=== PATIENT | female | born 1955 | race Caucasian/White ===

== ENCOUNTER 2018-07-05 11:13 | Emergency (ER) | payer OTHER, MEDICAID, SELFPAY ==
[2018-07-05 11:21] VITALS: BP 148/92; PULSE 90; RESP 14; TEMP 36.2; O2SAT 99
--- NOTE | 2018-07-05 12:10 | ED.SKABFB ---
HPI - Skin/Abscess/Foreign Bdy <Rika Chaudhari PA-C - Last Filed: 07/05/18 21:17> General Chief complaint: Skin/Abscess/Foreign Body Stated complaint: states bumps/pus on buttocks Time Seen by Provider: 07/05/18 12:10 Source: patient Mode of arrival: ambulatory Limitations: no limitations History of Present Illness HPI narrative: This 62-year-old femaleThis 62-year-old female with a history of inflammatory bowel disease comes in due to concern for worsening rectal fistula. She states that she has had worsening rectal pain and draining pus for 4-5 months, however for the last 3 or 4 days pain has been ?different?, and worse. She has more pain on the left side of the anal area and her skin. She has not noted new swelling. She has not had blood in the stools recently. She has not had new fever. She states her urine seems a little darker but no new urinary symptoms. She has not had vaginal discharge. On systems review she admits that she has had some increased nausea for a few days but no vomiting. She states that she has also had constant midsternal pressure for the last 2 days which will get worse for a few minutes off and on, no exacerbating or alleviating features (she has been going about her usual activities). The chest discomfort does not radiate. She has not had any dyspnea. She has not noted any new swelling in her calves or feet. No new calf pain. She states that she has been under increased stress with her father passing away a week ago and wonders whether this could contribute. She states that she called her GI specialist at who advised her to come in for exam and MRI. She states that she does have diarrhea frequently (unchanged) and was recently tested for C. diff (negative). Related Data Home Medications Medication Instructions Recorded Confirmed amitriptyline 75 mg PO BEDTIME 07/05/18 07/05/18 prednisone 30 mg PO DAILY 07/05/18 07/05/18 zolpidem 5 mg PO BEDTIME 07/05/18 07/05/18 Previous Rx's Medication Instructions Recorded gabapentin 300 mg PO Q8H #20 cap 07/05/18 lidocaine 3 patch TOP DAILY #30 each 07/05/18 lidocaine HCl 1 applictn TOP TID PRN #50 ml 07/05/18 Allergies Allergy/AdvReac Type Severity Reaction Status Date / Time No Known Drug Allergies Allergy Verified 07/05/18 12:34 Review of Systems <Rika Chaudhari PA-C - Last Filed: 07/05/18 21:17> Review of Systems All systems reviewed & are unremarkable except as noted in HPI and below PFSH <Rika Chaudhari PA-C - Last Filed: 07/05/18 21:17> Comment: History of EtOH abuse, nondrinker for 13 years Exam <Rika Chaudhari PA-C - Last Filed: 07/05/18 21:17> Narrative Exam Narrative: GENERAL APPEARANCE: Patient sitting comfortably, in no distress. HEENT: PERRL, EOMI, no scleral icterus, normal oropharynx NECK: Supple LUNGS: Clear to auscultation bilaterally. CHEST: Midsternal tenderness to palpation HEART: Rate and rhythm regular, normal S1 and S2, no S3 or S4. ABDOMEN: Soft, nontender, nondistended, bowel sounds present x 4 quadrants, no masses palpable, no hepatosplenomegaly. EXTREMITIES: No edema, no cyanosis, no calf tenderness DERMATOLOGIC: No jaundice, skin on the left medial gluteal area there is an erythematous papular rash with a few small vesicles. This is also present in the external rectal area, tender to touch. There is no exanthem on the right side. No pustules NEUROLOGIC: Alert and oriented with normal speech and coordination RECTAL: Unable to complete secondary to tenderness. No visible pus draining or palpable mass. FOB negative x 1. Initial Vital Signs Initial Vital Signs: Vital Signs Temperature 97.2 F L 07/05/18 11:21 Pulse Rate 90 07/05/18 11:21 Respiratory Rate 14 07/05/18 11:21 Blood Pressure 148/92 H 07/05/18 11:21 Pulse Oximetry 99 07/05/18 11:21 <Hunter Farmer DO - Last Filed: 07/06/18 18:24> Initial Vital Signs Initial Vital Signs: Vital Signs Temperature 97.2 F L 07/05/18 11:21 Pulse Rate 90 07/05/18 11:21 Respiratory Rate 14 07/05/18 11:21 Blood Pressure 148/92 H 07/05/18 11:21 Pulse Oximetry 99 07/05/18 11:21 Course <Rika Chaudhari PA-C - Last Filed: 07/05/18 21:17> Additional Information: Patient does not appear to have Crohn's exacerbation or acute worsening of chronic fisulas. She does have new HZV in the sacral dermatome that she describes as the pain distribution of her different pain. It has been 4-5 days since onset. She has taken gabapentin in the past without SEs, but does not remember dose, so will restart that for pain and f/u with PCP. Also advised f/u with GI for fistulas. Orders Ordered: Discontinued Medications Al Hydrox/Mg Hydrox/Simethicone 20 ml/ Lidocaine HCl 15 ml 0 ml PO NOW ONE Stop: 07/05/18 12:28 Last Admin: 07/05/18 12:30 Dose: 35 ml Vital Signs - 8 hr 07/05/18 11:21 Temperature 97.2 F L Pulse Rate 90 Respiratory Rate 14 Blood Pressure 148/92 H Pulse Oximetry 99 <Hunter Farmer DO - Last Filed: 07/06/18 18:24> Orders Ordered: Discontinued Medications Al Hydrox/Mg Hydrox/Simethicone 20 ml/ Lidocaine HCl 15 ml 0 ml PO NOW ONE Stop: 07/05/18 12:28 Last Admin: 07/05/18 12:30 Dose: 35 ml Vital Signs - 8 hr 07/05/18 11:21 Temperature 97.2 F L Pulse Rate 90 Respiratory Rate 14 Blood Pressure 148/92 H Pulse Oximetry 99 MDM - Skin/Abscess/Foreign Bdy <Rika Chaudhari PA-C - Last Filed: 07/05/18 21:17> Lab Data Attestation: I reviewed the patient's lab results. Result diagrams: 07/05/18 12:50 07/05/18 12:50 Lab Results 07/05/18 07/05/18 Range/Units 12:50 12:50 WBC 13.6 H (4.5-11.0) X10^3/uL RBC 5.00 (4.0-5.2) X10^6/uL Hgb 15.7 (12.0-16.0) g/dL Hct 46.0 (36-46) % MCV 91.9 (80-100) fL MCH 31.3 (26-34) PG MCHC 34.1 (30-36) % RDW 13.4 (11.6-14.8) % Plt Count 435 H (150-400) X10^3/uL Neut % (Auto) 69.4 (50-75) % Lymph % (Auto) 18.3 L (25-40) % [place] % (Auto) 10.7 (3-14) % Eos % (Auto) 1.0 L (2-4) % Baso % (Auto) 0.6 (0-2) % Neut # (Auto) 9400 H (3010-8819) /uL Sodium 140 (137-145) mmol/L Potassium 4.2 (3.4-5.1) mmol/L Chloride 101 (98-107) mmol/L Carbon Dioxide 29 (22-32) mmol/L BUN 19 H (7-17) mg/dL Creatinine 0.70 (0.52-1.04) mg/dL Estimated GFR > 60.0 (>60) mL/min BUN/Creatinine Ratio 27.1 H (6-22) Glucose 80 (80-110) mg/dL Calcium 9.3 (8.4-10.2) mg/dL Total Bilirubin 0.6 (0.2-1.3) mg/dL AST 27 (14-36) IU/L ALT 23 (9-52) IU/L Alkaline Phosphatase 127 H (38-126) U/L Total Creatine Kinase 25 L (30-135) U/L Troponin I < 0.012 (0.01-0.034) ng/mL Total Protein 7.9 (6.3-8.2) g/dL Albumin 4.2 (3.5-5.0) g/dL Globulin 3.7 (1.7-4.1) g/dL Albumin/Globulin Ratio 1.1 (1.0-2.8) Imaging Data Chest x-ray: Radiologist's impression: [address] [address] XRay Report Signed Patient: Minda Cohen MR#: [id number] : 1955 Acct:[id number] Age/Sex: 62 / F Date of Service: 07/05/18 Loc: ED Accession Number: [id number] Procedure: XR chest 1V Ordering Provider: Fishfader,Rika A P.A-C PROCEDURE: XR CHEST 1V INDICATIONS: sternal pain TECHNIQUE: One view of the chest was acquired. COMPARISON: [facility], RG, XR CXR 2 VIEW, 09/25/2004, 14:07. FINDINGS: Surgical changes and devices: None. Lungs and pleura: No pleural effusions or pneumothorax. Lungs are clear. Mediastinum: Mediastinal contours appear normal. Heart size is normal. Bones and chest wall: No suspicious bony lesions. Overlying soft tissues appear unremarkable. IMPRESSION: No acute pulmonary process. Dictated by: Tonja Ellsworth M.D. on 07/05/2018 at 12:01 Approved by: Tonja Ellsworth M.D. on 07/05/2018 at 12:01 ECG Data Attestation: I personally reviewed and interpreted this ECG as follows: (NSR, rate 72, nl axis) <Hunter Farmer DO - Last Filed: 07/06/18 18:24> Lab Data Lab Results 07/05/18 07/05/18 Range/Units 12:50 12:50 WBC 13.6 H (4.5-11.0) X10^3/uL RBC 5.00 (4.0-5.2) X10^6/uL Hgb 15.7 (12.0-16.0) g/dL Hct 46.0 (36-46) % MCV 91.9 (80-100) fL MCH 31.3 (26-34) PG MCHC 34.1 (30-36) % RDW 13.4 (11.6-14.8) % Plt Count 435 H (150-400) X10^3/uL Neut % (Auto) 69.4 (50-75) % Lymph % (Auto) 18.3 L (25-40) % [place] % (Auto) 10.7 (3-14) % Eos % (Auto) 1.0 L (2-4) % Baso % (Auto) 0.6 (0-2) % Neut # (Auto) 9400 H (7661-2291) /uL Sodium 140 (137-145) mmol/L Potassium 4.2 (3.4-5.1) mmol/L Chloride 101 (98-107) mmol/L Carbon Dioxide 29 (22-32) mmol/L BUN 19 H (7-17) mg/dL Creatinine 0.70 (0.52-1.04) mg/dL Estimated GFR > 60.0 (>60) mL/min BUN/Creatinine Ratio 27.1 H (6-22) Glucose 80 (80-110) mg/dL Calcium 9.3 (8.4-10.2) mg/dL Total Bilirubin 0.6 (0.2-1.3) mg/dL AST 27 (14-36) IU/L ALT 23 (9-52) IU/L Alkaline Phosphatase 127 H (38-126) U/L Total Creatine Kinase 25 L (30-135) U/L Troponin I < 0.012 (0.01-0.034) ng/mL Total Protein 7.9 (6.3-8.2) g/dL Albumin 4.2 (3.5-5.0) g/dL Globulin 3.7 (1.7-4.1) g/dL Albumin/Globulin Ratio 1.1 (1.0-2.8) Discharge Plan Departure Patient Disposition: Home Clinical Impression: Shingles Discharge Date/Time: 07/05/18 15:14 Interventions: ED Discharge Assessment Last Done: 07/05/18 15:13 Instructions: DI for Shingles, DI for Atypical Chest Pain Activity Restrictions/Additional Instructions: Please return as we talked about if you have any acutely worsening symptoms. I think that your new pain in your bottom is from shingles. This is in the area of the nerve on the left side of your bottom and also crosses into the skin and tissue at your rectum. Please start Gabapentin since you have taken this in the past. Remember that it can make you sleepy and not to drive. You can increase the dose at bedtime if needed for pain and sleep. I have also sent in a prescription for lidocaine patches to use on your external buttock area and you can use some lidocaine jelly on the tissue near the rectum. Please keep the area covered. Please be sure to call your GI specialist to follow up on your bowel issues and fistulas, and you should see Dr. Vilchis in the next few days to see whether you need any medication changes or additional medications Prescriptions: New gabapentin 300 mg capsule 300 mg PO Q8H Qty: 20 RF: 0 lidocaine HCl 2 % jelly 1 applictn TOP TID PRN (Reason: pain) Qty: 50 RF: 0 lidocaine 5 % adhesive patch,medicated 3 patch TOP DAILY Qty: 30 RF: 0 No Action prednisone 10 mg tablet 30 mg PO DAILY RF: 0 amitriptyline 75 mg tablet 75 mg PO BEDTIME RF: 0 zolpidem 5 mg Tablet 5 mg PO BEDTIME RF: 0 <Hunter aFrmer, DO - Last Filed: 07/06/18 18:24> [facility] Amanda Attestation: I was available for consultation during this patient's emergency department encounter
--- NOTE | 2018-07-05 12:27 | DI.RAD.S_ITS ---
PROCEDURE: XR CHEST 1V INDICATIONS: sternal pain TECHNIQUE: One view of the chest was acquired. COMPARISON: [facility], , XR CXR 2 VIEW, 09/25/2004, 14:07. FINDINGS: Surgical changes and devices: None. Lungs and pleura: No pleural effusions or pneumothorax. Lungs are clear. Mediastinum: Mediastinal contours appear normal. Heart size is normal. Bones and chest wall: No suspicious bony lesions. Overlying soft tissues appear unremarkable. IMPRESSION: No acute pulmonary process. Dictated by: Tonja Ellsworth M.D. on 07/05/2018 at 12:01 Approved by: Tonja Ellsworth M.D. on 07/05/2018 at 12:01
[2018-07-05] MEDS: MAG HYDROX/ALUMINUM/SIMETH SUS 20 ML, LIDOCAINE VISCOUS 2% 15 ML PO (12:30)
--- NOTE | 2018-07-05 12:32 | ED_ITS ---
HPI - Skin/Abscess/Foreign Bdy <Rika Chaudhari PA-C - Last Filed: 07/05/18 21:17> General Chief complaint: Skin/Abscess/Foreign Body Stated complaint: states bumps/pus on buttocks Time Seen by Provider: 07/05/18 12:10 Source: patient Mode of arrival: ambulatory Limitations: no limitations History of Present Illness HPI narrative: This 62-year-old femaleThis 62-year-old female with a history of inflammatory bowel disease comes in due to concern for worsening rectal fistula. She states that she has had worsening rectal pain and draining pus for 4-5 months, however for the last 3 or 4 days pain has been ?different?, and worse. She has more pain on the left side of the anal area and her skin. She has not noted new swelling. She has not had blood in the stools recently. She has not had new fever. She states her urine seems a little darker but no new urinary symptoms. She has not had vaginal discharge. On systems review she admits that she has had some increased nausea for a few days but no vomiting. She states that she has also had constant midsternal pressure for the last 2 days which will get worse for a few minutes off and on, no exacerbating or alleviating features (she has been going about her usual activities). The chest discomfort does not radiate. She has not had any dyspnea. She has not noted any new swelling in her calves or feet. No new calf pain. She states that she has been under increased stress with her father passing away a week ago and wonders whether this could contribute. She states that she called her GI specialist at who advised her to come in for exam and MRI. She states that she does have diarrhea frequently (unchanged) and was recently tested for C. diff (negative). Related Data Home Medications Medication Instructions Recorded Confirmed amitriptyline 75 mg PO BEDTIME 07/05/18 07/05/18 prednisone 30 mg PO DAILY 07/05/18 07/05/18 zolpidem 5 mg PO BEDTIME 07/05/18 07/05/18 Previous Rx's Medication Instructions Recorded gabapentin 300 mg PO Q8H #20 cap 07/05/18 lidocaine 3 patch TOP DAILY #30 each 07/05/18 lidocaine HCl 1 applictn TOP TID PRN #50 ml 07/05/18 Allergies Allergy/AdvReac Type Severity Reaction Status Date / Time No Known Drug Allergies Allergy Verified 07/05/18 12:34 Review of Systems <Rika Chaudhari PA-C - Last Filed: 07/05/18 21:17> Review of Systems All systems reviewed & are unremarkable except as noted in HPI and below PFSH <Rika Chaudhari PA-C - Last Filed: 07/05/18 21:17> Comment: History of EtOH abuse, nondrinker for 13 years Exam <Rkia Chaudhari PA-C - Last Filed: 07/05/18 21:17> Narrative Exam Narrative: GENERAL APPEARANCE: Patient sitting comfortably, in no distress. HEENT: PERRL, EOMI, no scleral icterus, normal oropharynx NECK: Supple LUNGS: Clear to auscultation bilaterally. CHEST: Midsternal tenderness to palpation HEART: Rate and rhythm regular, normal S1 and S2, no S3 or S4. ABDOMEN: Soft, nontender, nondistended, bowel sounds present x 4 quadrants, no masses palpable, no hepatosplenomegaly. EXTREMITIES: No edema, no cyanosis, no calf tenderness DERMATOLOGIC: No jaundice, skin on the left medial gluteal area there is an erythematous papular rash with a few small vesicles. This is also present in the external rectal area, tender to touch. There is no exanthem on the right side. No pustules NEUROLOGIC: Alert and oriented with normal speech and coordination RECTAL: Unable to complete secondary to tenderness. No visible pus draining or palpable mass. FOB negative x 1. Initial Vital Signs Initial Vital Signs: Vital Signs Temperature 97.2 F L 07/05/18 11:21 Pulse Rate 90 07/05/18 11:21 Respiratory Rate 14 07/05/18 11:21 Blood Pressure 148/92 H 07/05/18 11:21 Pulse Oximetry 99 07/05/18 11:21 <Hunter Farmer DO - Last Filed: 07/06/18 18:24> Initial Vital Signs Initial Vital Signs: Vital Signs Temperature 97.2 F L 07/05/18 11:21 Pulse Rate 90 07/05/18 11:21 Respiratory Rate 14 07/05/18 11:21 Blood Pressure 148/92 H 07/05/18 11:21 Pulse Oximetry 99 07/05/18 11:21 Course <Rika Chaudhari PA-C - Last Filed: 07/05/18 21:17> Additional Information: Patient does not appear to have Crohn's exacerbation or acute worsening of chronic fisulas. She does have new HZV in the sacral dermatome that she describes as the pain distribution of her different pain. It has been 4-5 days since onset. She has taken gabapentin in the past without SEs, but does not remember dose, so will restart that for pain and f/u with PCP. Also advised f/u with GI for fistulas. Orders Ordered: Discontinued Medications Al Hydrox/Mg Hydrox/Simethicone 20 ml/ Lidocaine HCl 15 ml 0 ml PO NOW ONE Stop: 07/05/18 12:28 Last Admin: 07/05/18 12:30 Dose: 35 ml Vital Signs - 8 hr 07/05/18 11:21 Temperature 97.2 F L Pulse Rate 90 Respiratory Rate 14 Blood Pressure 148/92 H Pulse Oximetry 99 <Hunter Farmer DO - Last Filed: 07/06/18 18:24> Orders Ordered: Discontinued Medications Al Hydrox/Mg Hydrox/Simethicone 20 ml/ Lidocaine HCl 15 ml 0 ml PO NOW ONE Stop: 07/05/18 12:28 Last Admin: 07/05/18 12:30 Dose: 35 ml Vital Signs - 8 hr 07/05/18 11:21 Temperature 97.2 F L Pulse Rate 90 Respiratory Rate 14 Blood Pressure 148/92 H Pulse Oximetry 99 MDM - Skin/Abscess/Foreign Bdy <Rika Chaudhari PA-C - Last Filed: 07/05/18 21:17> Lab Data Attestation: I reviewed the patient's lab results. Result diagrams: 07/05/18 12:50 07/05/18 12:50 Lab Results 07/05/18 07/05/18 Range/Units 12:50 12:50 WBC 13.6 H (4.5-11.0) X10^3/uL RBC 5.00 (4.0-5.2) X10^6/uL Hgb 15.7 (12.0-16.0) g/dL Hct 46.0 (36-46) % MCV 91.9 (80-100) fL MCH 31.3 (26-34) PG MCHC 34.1 (30-36) % RDW 13.4 (11.6-14.8) % Plt Count 435 H (150-400) X10^3/uL Neut % (Auto) 69.4 (50-75) % Lymph % (Auto) 18.3 L (25-40) % [place] % (Auto) 10.7 (3-14) % Eos % (Auto) 1.0 L (2-4) % Baso % (Auto) 0.6 (0-2) % Neut # (Auto) 9400 H (5112-2089) /uL Sodium 140 (137-145) mmol/L Potassium 4.2 (3.4-5.1) mmol/L Chloride 101 (98-107) mmol/L Carbon Dioxide 29 (22-32) mmol/L BUN 19 H (7-17) mg/dL Creatinine 0.70 (0.52-1.04) mg/dL Estimated GFR > 60.0 (>60) mL/min BUN/Creatinine Ratio 27.1 H (6-22) Glucose 80 (80-110) mg/dL Calcium 9.3 (8.4-10.2) mg/dL Total Bilirubin 0.6 (0.2-1.3) mg/dL AST 27 (14-36) IU/L ALT 23 (9-52) IU/L Alkaline Phosphatase 127 H (38-126) U/L Total Creatine Kinase 25 L (30-135) U/L Troponin I < 0.012 (0.01-0.034) ng/mL Total Protein 7.9 (6.3-8.2) g/dL Albumin 4.2 (3.5-5.0) g/dL Globulin 3.7 (1.7-4.1) g/dL Albumin/Globulin Ratio 1.1 (1.0-2.8) Imaging Data Chest x-ray: Radiologist's impression: [address] [address] XRay Report Signed Patient: Minda Cohen MR#: [id number] : 1955 Acct:[id number] Age/Sex: 62 / F Date of Service: 07/05/18 Loc: ED Accession Number: [id number] Procedure: XR chest 1V Ordering Provider: Fishfader,Rika A P.A-C PROCEDURE: XR CHEST 1V INDICATIONS: sternal pain TECHNIQUE: One view of the chest was acquired. COMPARISON: [facility], RG, XR CXR 2 VIEW, 09/25/2004, 14:07. FINDINGS: Surgical changes and devices: None. Lungs and pleura: No pleural effusions or pneumothorax. Lungs are clear. Mediastinum: Mediastinal contours appear normal. Heart size is normal. Bones and chest wall: No suspicious bony lesions. Overlying soft tissues appear unremarkable. IMPRESSION: No acute pulmonary process. Dictated by: Tonja Ellsworth M.D. on 07/05/2018 at 12:01 Approved by: Tonja Ellsworth M.D. on 07/05/2018 at 12:01 ECG Data Attestation: I personally reviewed and interpreted this ECG as follows: (NSR, rate 72, nl axis) <Hunter Farmer DO - Last Filed: 07/06/18 18:24> Lab Data Lab Results 07/05/18 07/05/18 Range/Units 12:50 12:50 WBC 13.6 H (4.5-11.0) X10^3/uL RBC 5.00 (4.0-5.2) X10^6/uL Hgb 15.7 (12.0-16.0) g/dL Hct 46.0 (36-46) % MCV 91.9 (80-100) fL MCH 31.3 (26-34) PG MCHC 34.1 (30-36) % RDW 13.4 (11.6-14.8) % Plt Count 435 H (150-400) X10^3/uL Neut % (Auto) 69.4 (50-75) % Lymph % (Auto) 18.3 L (25-40) % [place] % (Auto) 10.7 (3-14) % Eos % (Auto) 1.0 L (2-4) % Baso % (Auto) 0.6 (0-2) % Neut # (Auto) 9400 H (2925-5569) /uL Sodium 140 (137-145) mmol/L Potassium 4.2 (3.4-5.1) mmol/L Chloride 101 (98-107) mmol/L Carbon Dioxide 29 (22-32) mmol/L BUN 19 H (7-17) mg/dL Creatinine 0.70 (0.52-1.04) mg/dL Estimated GFR > 60.0 (>60) mL/min BUN/Creatinine Ratio 27.1 H (6-22) Glucose 80 (80-110) mg/dL Calcium 9.3 (8.4-10.2) mg/dL Total Bilirubin 0.6 (0.2-1.3) mg/dL AST 27 (14-36) IU/L ALT 23 (9-52) IU/L Alkaline Phosphatase 127 H (38-126) U/L Total Creatine Kinase 25 L (30-135) U/L Troponin I < 0.012 (0.01-0.034) ng/mL Total Protein 7.9 (6.3-8.2) g/dL Albumin 4.2 (3.5-5.0) g/dL Globulin 3.7 (1.7-4.1) g/dL Albumin/Globulin Ratio 1.1 (1.0-2.8) Discharge Plan Departure Patient Disposition: Home Clinical Impression: Shingles Discharge Date/Time: 07/05/18 15:14 Interventions: ED Discharge Assessment Last Done: 07/05/18 15:13 Instructions: DI for Shingles, DI for Atypical Chest Pain Activity Restrictions/Additional Instructions: Please return as we talked about if you have any acutely worsening symptoms. I think that your new pain in your bottom is from shingles. This is in the area of the nerve on the left side of your bottom and also crosses into the skin and tissue at your rectum. Please start Gabapentin since you have taken this in the past. Remember that it can make you sleepy and not to drive. You can increase the dose at bedtime if needed for pain and sleep. I have also sent in a prescription for lidocaine patches to use on your external buttock area and you can use some lidocaine jelly on the tissue near the rectum. Please keep the area covered. Please be sure to call your GI specialist to follow up on your bowel issues and fistulas, and you should see Dr. Vilchis in the next few days to see whether you need any medication changes or additional medications Prescriptions: New gabapentin 300 mg capsule 300 mg PO Q8H Qty: 20 RF: 0 lidocaine HCl 2 % jelly 1 applictn TOP TID PRN (Reason: pain) Qty: 50 RF: 0 lidocaine 5 % adhesive patch,medicated 3 patch TOP DAILY Qty: 30 RF: 0 No Action prednisone 10 mg tablet 30 mg PO DAILY RF: 0 amitriptyline 75 mg tablet 75 mg PO BEDTIME RF: 0 zolpidem 5 mg Tablet 5 mg PO BEDTIME RF: 0 <Hunter Farmer, DO - Last Filed: 07/06/18 18:24> [facility] Amanda Attestation: I was available for consultation during this patient's emergency department encounter
[2018-07-05 13:10] LABS: Add Manual Diff / Slide Review NO; Basophils Percent Auto 0.6 % (0-2); Hemoglobin 15.7 g/dL (12.0-16.0); Lymphocytes Percent Auto 18.3 % (25-40); Mean Corpuscular HGB Conc 34.1 % (30-36); Mean Corpuscular Hemoglobin 31.3 PG (26-34); Mean Corpuscular Volume 91.9 fL (80-100); Monocytes Percent Auto 10.7 % (3-14); Neutrophils Absolute Auto 9400 /uL (3000-5900); Neutrophils Percent Auto 69.4 % (50-75); Platelet Count 435 X10^3/uL (150-400); Red Cell Distribution Width 13.4 % (11.6-14.8); White Blood Cell Count 13.6 X10^3/uL (4.5-11.0)
[2018-07-05 13:24] LABS: Alanine Aminotransferase 23 IU/L (9-52); Albumin 4.2 g/dL (3.5-5.0); Albumin Globulin Ratio 1.1 (1.0-2.8); Alkaline Phosphatase 127 U/L (38-126); Aspartate Aminotransferase 27 IU/L (14-36); BUN Creatinine Ratio 27.1 (6-22); Bilirubin Total 0.6 mg/dL (0.2-1.3); Blood Urea Nitrogen 19 mg/dL (7-17); Calcium 9.3 mg/dL (8.4-10.2); Carbon Dioxide 29 mmol/L (22-32); Chloride 101 mmol/L (98-107); Creatine Kinase 25 U/L (30-135); Estimated Glomerular Filt Rate > 60.0 mL/min (>60); Globulin 3.7 g/dL (1.7-4.1); Glucose 80 mg/dL (80-110); HEMOLYSIS 44 (0-50); Potassium 4.2 mmol/L (3.4-5.1); Sodium 140 mmol/L (137-145); Total Protein 7.9 g/dL (6.3-8.2)
[2018-07-05 13:36] LABS: Troponin I < 0.012 ng/mL (0.01-0.034)
== END 2018-07-05 15:14 | disposition home or self-care (01) ==
PROVIDERS: Emergency Provider Internal Medicine; Family Provider Otolaryngology Facial Plastic Surgery; PCP Otolaryngology Facial Plastic Surgery
DX: B02.9 Zoster without complications (principal)
CPT/HCPCS: 36591; 71045; 80053; 82550; 82553; 84484; 85025; 93005; 93010; 99282; 99285

== ENCOUNTER → 2018-07-15 06:35 | Outpatient (CLI) | payer OTHER, MEDICAID, SELFPAY ==
--- NOTE | 2018-07-15 | DI.MRI.S_ITS ---
PROCEDURE: MR PELIS WO/W CON INDICATIONS: CROHN'S DISEASE OF COLON AND FISTULA TECHNIQUE: Coronal HASTE, sagittal T2 FSE, axial T1 FSE, axial and coronal nonbreath-hold T2 FSE. Axial dynamic VIBE during administration of contrast. Post-contrast axial and coronal VIBE/2-D FLASH with fat saturation from the iliac crests to the symphysis. Optional diffusion weighted imaging and ADC may be performed. COMPARISON: [facility], CT, ABDOMEN/PELVIS WITH CONTRAST, 11/04/2016, 12:14. FINDINGS: Image quality: Excellent. Bowel and peritoneum: There is segmental wall thickening of the posterior wall of the lower rectum and concentric wall thickening in the anus. There is a small anal fistula at the 1:00 position extending to the intersphincteric space where there is associated mild localized edema and enhancement without a discrete peripherally enhancing abscess collection. No definite extension through the levator ani muscle. More distally, there is a fistula also demonstrated at the 5:00 position associated with an irregular loculated collection measuring approximately 1.8 x 0.8 x 1.1 cm compatible with a small abscess or phlegmon which appears to traverse the external sphincter and extends to the posterior perianal fat. Genitourinary system: Bladder wall is normal in thickness. Distal ureters are non distended. Nodes and vessels: No pathologic pelvic or inguinal adenopathy by size criteria. Iliac vessels are normal in caliber. Soft tissues: No inguinal hernias. Bones: Marrow is normal in overall signal. IMPRESSION: 1. Segmental wall thickening of the lower rectum and anus compatible with inflammatory change from Crohn's disease. 2. Anal fistula demonstrated at the 1:00 position extending to the intersphincteric space where there is associated edema and enhancement without a discrete loculated abscess collection. 3. More distally, a fistula is also demonstrated at the 5:00 position contiguous with a loculated enhancing collection consistent with a small perianal abscess or phlegmon traversing the external sphincter into the perianal fat. Dictated by: Morales Penaloza M.D. on 07/15/2018 at 7:58 Approved by: Morales Penaloza M.D. on 07/15/2018 at 8:51
== END ==
PROVIDERS: Family Provider Otolaryngology Facial Plastic Surgery; PCP Otolaryngology Facial Plastic Surgery; Visit Provider Urology
DX: K50.90 Crohn's disease, unspecified, without complications (principal); K60.5 Anorectal fistula
CPT/HCPCS: 72197; A9579

== ENCOUNTER 2019-09-26 13:42 | Emergency (ER) | payer OTHER, MEDICAID, SELFPAY ==
[2019-09-26 13:49] VITALS: BP 143/82; PULSE 80; RESP 16; TEMP 36.1; O2SAT 97
--- NOTE | 2019-09-26 13:53 | DI.US.S_ITS ---
PROCEDURE: US PERIPH VENOUS LOW EXTREM LT INDICATIONS: PAIN, EDEMA TECHNIQUE: Real-time imaging, as well as color and pulse Doppler interrogation, were performed of the lower extremity deep veins from the inguinal ligament to the popliteal fossa. COMPARISON: None. FINDINGS: The common femoral, femoral and popliteal veins are normally compressible, and free of intraluminal thrombus. Color and pulse Doppler demonstrate normal phasic intraluminal flow. There is normal augmentation response to distal compression maneuver. IMPRESSION: No DVT found. Dictated by: Cash Hinkle M.D. on 09/26/2019 at 14:27 Approved by: Cash Hinkle M.D. on 09/26/2019 at 14:28
--- NOTE | 2019-09-26 17:59 | ED.EXTPRO ---
HPI - Extremity Problem <MALU Platt - Last Filed: 09/26/19 18:03> General Chief complaint: Extremity Problem,Nontraumatic Stated complaint: chemo patient,legs swelling Time Seen by Provider: 09/26/19 14:11 Source: patient and family Mode of arrival: Ambulatory Limitations: no limitations History of Present Illness HPI Narrative: The patient is a 64-year-old female former smoker with history of cancer presents with a chief complaint of left lower leg swelling. She is in it for the past few days. She denies any chest pain, shortness of breath, fever nausea vomiting or diarrhea. She states that her oncologist at [facility] wanted to have a scan for possible DVT. Related Data Home Medications Medication Instructions Recorded Confirmed amitriptyline 75 mg PO BEDTIME 07/05/18 07/05/18 prednisone 30 mg PO DAILY 07/05/18 07/05/18 zolpidem 5 mg PO BEDTIME 07/05/18 07/05/18 Previous Rx's Medication Instructions Recorded gabapentin 300 mg PO Q8H #20 cap 07/05/18 lidocaine 3 patch TOP DAILY #30 each 07/05/18 lidocaine HCl 1 applictn TOP TID PRN #50 ml 07/05/18 Allergies Allergy/AdvReac Type Severity Reaction Status Date / Time No Known Drug Allergies Allergy Verified 07/05/18 12:34 Review of Systems <MALU Platt - Last Filed: 09/26/19 18:03> Review of Systems Narrative: GENERAL: Denies chills, fatigue, malaise, fever, sweats. HEENT: Denies sinus pain, ear pain, sore throat, difficulty swallowing, dizziness. RESPIRATORY: Denies dyspnea, cough, wheezing, hemoptysis, sputum. CARDIOVASCULAR: Denies chest pain, palpitations, orthopnea, edema, GASTROINTESTINAL: Denies nausea, vomiting, abdominal pain, diarrhea, constipation, melena. : Denies dysuria, frequency, incontinence, hematuria, urinary retention. MUSCULOSKELETAL: See HPI SKIN: Denies rash, skin lesions, or other NEUROLOGIC: Denies weakness, headache, numbness, change in speech, confusion, seizures, incoordination. PSYCHIATRIC: No concerning psychosocial issues. 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 Normocephalic. No temporal or scalp tenderness. EYES: Pupils equal round and reactive. Extraocular motions intact. No scleral icterus. No injection or drainage. ENT: Nose without bleeding, purulent drainage or septal hematoma. Throat without erythema, tonsillar hypertrophy or exudate. Uvula midline. Airway patent. NECK: Trachea midline. No JVD or lymphadenopathy. Supple, nontender, no meningeal signs. CARDIOVASCULAR: Regular rate and rhythm without murmurs, gallops, or rubs. RESPIRATORY: Clear to auscultation. Breath sounds equal bilaterally. No wheezes, rales, or rhonchi. No cough. No respiratory effort. No accessory base. GASTROINTESTINAL: Abdomen soft, non-tender, nondistended. No hepato-splenomegaly, or palpable masses. No guarding. EXTREMITIES: No obvious edema left lower leg. Positive pedal pulses bilaterally. no erythema or drainage noted. BACK: Nontender without deformity or crepitance. No flank tenderness. NEURO: AOx3. SKIN: Diffuse scabs over bilateral lower extremities, no drainage or erythema. Initial Vital Signs Initial Vital Signs: Vital Signs Temperature 96.9 F L 09/26/19 13:49 Pulse Rate 80 09/26/19 13:49 Respiratory Rate 16 09/26/19 13:49 Blood Pressure 143/82 H 09/26/19 13:49 Pulse Oximetry 97 09/26/19 13:49 <Hunter Farmer DO - Last Filed: 09/26/19 18:08> Initial Vital Signs Initial Vital Signs: Vital Signs Temperature 96.9 F L 09/26/19 13:49 Pulse Rate 80 09/26/19 13:49 Respiratory Rate 16 09/26/19 13:49 Blood Pressure 143/82 H 09/26/19 13:49 Pulse Oximetry 97 09/26/19 13:49 Course <HAWK Platt - Last Filed: 09/26/19 18:03> Orders Ordered: ED Orders 09/26/19 13:53 US periph venous low extrem lt Stat Vital Signs Vital signs: Vital Signs - 8 hr 09/26/19 13:49 Temperature 96.9 F L Pulse Rate 80 Respiratory Rate 16 Blood Pressure 143/82 H Pulse Oximetry 97 <Hunter Farmer DO - Last Filed: 09/26/19 18:08> Orders Ordered: ED Orders 09/26/19 13:53 US periph venous low extrem lt Stat Vital Signs Vital signs: Vital Signs - 8 hr 09/26/19 13:49 Temperature 96.9 F L Pulse Rate 80 Respiratory Rate 16 Blood Pressure 143/82 H Pulse Oximetry 97 MDM - Extremity (Nontraumatic) <HAWK Platt - Last Filed: 09/26/19 18:03> Imaging Data Venous US: Radiologist's impression: Minda Cohen 64 F [address] [address] Ultrasound Report Signed Patient: [place],Minda MMR#: [id number] : [id number]:[id number] Age/Sex: 64 / FDate of Service: 09/26/19 Loc: ED Accession Number: [id number] Procedure: US periph venous low extrem lt Ordering Provider: Hunter Farmer D.O. PROCEDURE: US PERIPH VENOUS LOW EXTREM LT INDICATIONS: PAIN, EDEMA TECHNIQUE: Real-time imaging, as well as color and pulse Doppler interrogation, were performed of the lower extremity deep veins from the inguinal ligament to the popliteal fossa. COMPARISON: None. FINDINGS: The common femoral, femoral and popliteal veins are normally compressible, and free of intraluminal thrombus. Color and pulse Doppler demonstrate normal phasic intraluminal flow. There is normal augmentation response to distal compression maneuver. IMPRESSION: No DVT found. Dictated by: Cash Hinkle M.D. on 09/26/2019 at 14:27 Approved by: Cash Hinkle M.D. on 09/26/2019 at 14:28 [facility] Narrative Medical decision making narrative: Patient is a 64-year-old female who presents with a chief complaint of a possible left lower leg DVT. Ultrasound is negative. She denies any chest pain shortness of breath is hemodynamically stable vital signs are within normal limits. encouraged follow-up with primary care provider as well as hematology oncology. Discussed coming back to the emergency department for any acute concerns such as chest pain, shortness of breath etc. Patient has no questions or concerns upon discharge and states understanding of return precautions as well as follow-up care. Discharge Plan Departure Patient Disposition: Home Clinical Impression: Left leg pain Discharge Date/Time: 09/26/19 15:02 Instructions: How To Perform RICE (Rest, Ice, Compress, Elevate), DI for Leg Pain Activity Restrictions/Additional Instructions: Your ultrasound came back negative for a blood clot today. Please follow up with primary care provider as well as your oncologist. Please use rest ice compression elevation as well as [id number] medications as needed and able Please come back to emergency department for any acute concerns such as concern of a blood clot, chest pain, shortness of breath etc Prescriptions: No Action prednisone 10 mg tablet 30 mg PO DAILY RF: 0 amitriptyline 75 mg tablet 75 mg PO BEDTIME RF: 0 zolpidem 5 mg Tablet 5 mg PO BEDTIME RF: 0 gabapentin 300 mg capsule 300 mg PO Q8H Qty: 20 RF: 0 lidocaine HCl 2 % jelly 1 applictn TOP TID PRN (Reason: pain) Qty: 50 RF: 0 lidocaine 5 % adhesive patch,medicated 3 patch TOP DAILY Qty: 30 RF: 0 Referrals: Sonny Brooke MD [Primary Care Provider] - Kimi Arzate PA-C [Non-Staff] - <Hunter Farmer DO - Last Filed: 09/26/19 18:08> Sign Out Provider Sign Out Attestation: Dr Farmer Co-Sign Statement: I was available for consultation during this patient's emergency department visit. This chart is signed by myself for administrative purposes only. I did not have direct contact with this patient during this visit. They were seen independently by the APC.
== END 2019-09-26 15:02 | disposition home or self-care (01) ==
PROVIDERS: Emergency Provider Nurse Practitioner Family; Family Provider Otolaryngology Facial Plastic Surgery; PCP Otolaryngology Facial Plastic Surgery
DX: M79.605 Pain in left leg (principal)
CPT/HCPCS: 93971; 99282; 99283

== ENCOUNTER 2019-11-06 15:55 | Emergency (ER) | payer OTHER, MEDICAID, SELFPAY ==
[2019-11-06] VITALS (7 sets, daily range): BP systolic 117–152; BP diastolic 87–90; PULSE 69–115; RESP 15–22; TEMP 36.4–36.8; O2SAT 98–100
--- NOTE | 2019-11-06 16:07 | DI.RAD.S_ITS ---
PROCEDURE: XR CHEST 1V INDICATIONS: soa TECHNIQUE: One view of the chest was acquired. COMPARISON: [facility], CR, XR CHEST 1V, 07/05/2018, 12:35. FINDINGS: Surgical changes and devices: Right-sided Port-A-Cath central line catheter is identified with the tip overlying the atrial caval junction. Lungs and pleura: Lungs are clear. No pleural effusions or pneumothorax. Mediastinum: Mediastinal contours appear normal. Heart size is normal. There is aortic atherosclerosis. Bones and chest wall: No suspicious bony lesions. Degenerative changes of the spine and shoulders are present in which appear to be within normal limits for age, but are not adequately characterized. Overlying soft tissues appear unremarkable. IMPRESSION: No acute cardiopulmonary process is evident. Dictated by: Marco Mccall M.D. on 11/06/2019 at 15:23 Approved by: Marco Mccall M.D. on 11/06/2019 at 15:24
[2019-11-06 16:35] LABS: Add Manual Diff / Slide Review NO; Basophils Absolute Auto 100 /uL (0-100); Basophils Percent Auto 0.9 % (0-2); Eosinophils Absolute Auto 100 /uL (0-450); Eosinophils Percent Auto 1.4 % (2-4); Hematocrit 38.7 % (36-46); Hemoglobin 13.3 g/dL (12.0-16.0); Lymphocytes Absolute Auto 2700 /uL (1100-4500); Lymphocytes Percent Auto 38.7 % (25-40); Mean Corpuscular HGB Conc 34.4 % (30-36); Mean Corpuscular Hemoglobin 32.9 PG (26-34); Mean Corpuscular Volume 95.7 fL (80-100); Monocytes Absolute Auto 100 /uL (0-900); Monocytes Percent Auto 1.3 % (3-14); Neutrophils Absolute Auto 4100 /uL (1500-7000); Neutrophils Percent Auto 57.7 % (50-75); Platelet Count 368 X10^3/uL (150-400); Red Blood Cell Count 4.05 X10^6/uL (4.0-5.2); Red Cell Distribution Width 15.9 % (11.6-14.8)
--- NOTE | 2019-11-06 16:35 | PC.NURSE ---
Addendum entered by Yesi Frank R.N. 11/06/19 18:55: hx of ovarian and colon cancer, also with chrons. Original Note: reports, not getting enough air, even at rest, sxs started yesterday
[2019-11-06 16:45] LABS: Alanine Aminotransferase 17 IU/L (<35); Albumin 4.8 g/dL (3.5-5.0); Albumin Globulin Ratio 1.2 (1.0-2.8); Alkaline Phosphatase 102 U/L (38-126); Aspartate Aminotransferase 26 IU/L (14-36); BUN Creatinine Ratio 38.8 (6-22); Bilirubin Total 0.8 mg/dL (0.2-1.3); Blood Urea Nitrogen 31 mg/dL (7-17); Calcium 10.9 mg/dL (8.4-10.2); Carbon Dioxide 17 mmol/L (22-32); Chloride 100 mmol/L (98-107); Estimated Glomerular Filt Rate > 60.0 mL/min (>60); Globulin 4.1 g/dL (1.7-4.1); Glucose 117 mg/dL (80-110); HEMOLYSIS < 15 (0-50); Potassium 3.6 mmol/L (3.4-5.1); Sodium 134 mmol/L (137-145); Total Protein 8.9 g/dL (6.3-8.2)
[2019-11-06 16:56] LABS: Troponin I < 0.012 ng/mL (0.01-0.034)
[2019-11-06] MEDS: SODIUM CHLORIDE 0.9% 1,000 ML 1000 ML IV ×2 (17:09→18:14)
--- NOTE | 2019-11-06 18:08 | DI.CT.S_ITS ---
PROCEDURE: CT ANGIO CHEST PE PROTOCOL INDICATIONS: acute SOB, cancer pt TECHNIQUE: After the administration of intravenous contrast, 2 mm thick sections acquired from the pulmonary apices to the posterior costophrenic angles. 3-dimensional maximum intensity projection (MIP) coronal and sagittal reformats were then acquired through the thorax. For radiation dose reduction, the following was used: automated exposure control, adjustment of mA and/or kV according to patient size. COMPARISON: None. FINDINGS: Image quality: Excellent. Pulmonary arteries: Pulmonary arteries are normal in size, and demonstrate no intraluminal filling defects to suggest central pulmonary embolism. Of note, there is heterogeneous enhancement of the pulmonary arteries suggesting admixture of opacified and unopacified blood. Lungs and pleura: Lungs are clear. No pleural effusions or pneumothorax. Central and peripheral airways are patent. Mediastinum: Heart size is normal, without pericardial effusion. No leftward bowing of the interventricular septum. Of note, the right ventricle appears hypodense suggesting fatty atrophy of the myocardium. No mediastinal or hilar adenopathy. Thoracic aorta is normal in caliber and enhancement. Scattered atheromatous calcifications are present within the aortic arch. Esophagus is normal in caliber, without hiatal hernia. Bones and chest wall: No suspicious bony lesions. Ribs and thoracic spine appear intact throughout. Thyroid gland is unremarkable. No axillary or supraclavicular adenopathy. Abdomen: Visualized upper abdominal solid organs appear normal in the early arterial phase of enhancement. IMPRESSION: 1. No acute pulmonary embolus. 2. Hypodense appearance of the right ventricular myocardium suggesting fatty atrophy of the muscle. 3. No acute pulmonary findings to explain shortness of breath. Dictated by: Jayda Patterson M.D. on 11/06/2019 at 18:43 Approved by: Jayda Patterson M.D. on 11/06/2019 at 18:50
[2019-11-06] MEDS: PROCHLORPERAZINE 10 MG/2 ML VIAL IV (18:10)
[2019-11-06] MEDS: diphenhydrAMINE 50 MG/ML VIAL 25 MG IV (18:11)
--- NOTE | 2019-11-06 19:29 | ED.SOB ---
HPI - SOB/Dyspnea General Chief Complaint: Shortness of Breath/Dyspnea Stated Complaint: hard time breathing,nausea,chemo Time Seen by Provider: 11/06/19 16:09 Source: patient Mode of arrival: Ambulatory History of Present Illness HPI Narrative: Patient comes emergency department stating she has felt nauseated and just exhausted and short of breath since her last chemotherapy treatment about 5 days ago. She states this her 2nd treatment in her 2nd cycle of 3 rounds of chemotherapy, and previous to this, she has been able to recover from the down. After chemo in just 2 or 3 days. However, she states that this time, it has really ?hit her hard? and she feels like something else may be wrong. She denies fevers or chills. No productive cough. No abdominal pain or chest pain. No edema in her lower extremities that is new. She states she has not been able to eat or drink much because of the sense of nausea. Patient underwent workup for DVT in early September, but this was negative. Related Data Home Medications Medication Instructions Recorded Confirmed amitriptyline 75 mg PO BEDTIME 07/05/18 07/05/18 prednisone 30 mg PO DAILY 07/05/18 07/05/18 zolpidem 5 mg PO BEDTIME 07/05/18 07/05/18 Previous Rx's Medication Instructions Recorded gabapentin 300 mg PO Q8H #20 cap 07/05/18 lidocaine 3 patch TOP DAILY #30 each 07/05/18 lidocaine HCl 1 applictn TOP TID PRN #50 ml 07/05/18 Allergies Allergy/AdvReac Type Severity Reaction Status Date / Time No Known Drug Allergies Allergy Verified 07/05/18 12:34 Review of Systems Constitutional Constitutional: Denies chills, Reports fatigue, Denies fever(s), Denies frequent falls, Denies lethargy and Denies weakness Eyes Eyes: Denies change in vision, Denies eye discharge, Denies irritation and Denies loss of vision ENT Ears, Nose, Mouth, and Throat: Denies change in voice, Denies dizziness, Denies neck pain, Denies sore throat and Denies throat swelling Cardiovascular Cardiovascular: Denies chest pain, Denies irregular heart rhythm, Denies lightheadedness, Denies palpitations, Denies dyspnea, Denies dyspnea on exertion and Denies orthopnea Respiratory Respiratory: Denies cough, Denies dyspnea, Denies dyspnea on exertion and Denies wheezing Gastrointestinal Gastrointestinal: Denies abdominal pain, Denies change in bowel habits, Denies diarrhea, Reports nausea and Denies vomiting Genitourinary Genitourinary: Denies hematuria, Denies flank pain, Denies urinary incontinence and Denies urinary urgency Musculoskeletal Musculoskeletal: Denies back pain, Denies muscle weakness, Denies neck pain, Denies numbness and Denies tingling Integumentary/Breasts Skin/Breast: Denies pruritus, Denies erythema, Denies rash and Denies wounds Neurologic Neurologic: Denies behavioral changes, Denies confusion, Denies dizziness, Denies frequent falls, Denies loss of vision, Denies numbness, Denies tingling and Denies weakness Psychiatric Psychiatric: Denies anxiety, Denies behavioral changes, Denies confusion, Denies depression, Denies homicidal ideation and Denies suicidal ideation Endocrine Endocrine: Reports fatigue, Denies flushing and Denies palpitations Hematologic/Lymphatic Hematologic/Lymphatic: Denies easy bruising Allergic/Immunologic Allergic/Immunologic: Denies urticaria, Denies throat swelling and Denies wheezing Patient History Medical History Anal fissure and fistula (Chronic) Inflammatory bowel disease (Acute) 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) Osteoarthritis of right thumb (Chronic 11/20/16) Surgical History History of hand surgery (Resolved) History of nasal surgery (Resolved) Family History Sister Age: 65 Type 2 diabetes mellitus with diabetic dermatitis, without long-term current use of insulin Social History Smoking Status: Former smoker Tobacco: How many years used: 12 alcohol intake: former substance use type: does not use Smoking Status: Former smoker Exam Initial Vital Signs Initial Vital Signs: Vital Signs Temperature 98.2 F 11/06/19 16:06 Pulse Rate 115 H 11/06/19 16:06 Respiratory Rate 22 11/06/19 16:06 Blood Pressure 117/87 11/06/19 16:06 Pulse Oximetry 98 11/06/19 16:06 Const General: cooperative and well developed Nutritional Appearance: well nourished HENVA Head: normocephalic and atraumatic Ears: external ears normal Nose: external nose normal and No nasal discharge Face and sinus: face symmetric and No dry mucous membranes Mouth: oral mucosae normal and moist mucous membranes Teeth and gingiva: dentition normal Eyes General: appearance normal, both eyes and all related structures Eyelids: eyelids normal Conjunctivae: conjunctivae normal Sclera: sclerae normal Pupils: PERRL EOM: EOM intact bilaterally Neck Neck: normal visual inspection, trachea midline, No lymphadenopathy, No midline deformity and No JVD Lymphatic: No lymphedema Chest Chest: normal inspection of the chest Resp Effort & Inspection: normal respiratory effort, able to speak in complete sentences, no respiratory distress and no use of accessory muscles Auscultation: clear to auscultation bilaterally, no rales, no rhonchi and no wheezes Cardio Rate: regular rate Rhythm: regular rhythm Heart Sounds: no click, no gallops, no murmurs and no rubs Pulses: normal peripheral pulses GI Inspection: non-distended Palpation: soft, no hepatosplenomegaly, No guarding, No pulsatile mass and No tender Back/Spine/Pelvis Back: No CVA tenderness Cervical Spine: cervical ROM normal and No pain with cervical ROM Thoracic/Lumbar Spine: thoracic and lumbar spine normal to inspection Skin General: no rashes or lesions noted, No jaundice and No petechiae Neuro General: alert, oriented x3, gait normal and no focal motor deficits Speech: speech normal Extrem General: full ROM, no clubbing, cyanosis or edema, no pedal edema and no calf tenderness Psych Appearance: well kempt Mental Status: mental status grossly normal Attitude: cooperative Thought Content: normal and suicidality Judgment: judgment good Course Course Course Narrative: Patient was given 2 L of 0.9 normal saline in the emergency department and worked up with laboratory studies. Her white blood cell count was found to be normal at 7.0. Her GFR was normal at greater than 60. Due to her cancer and her sense of shortness of breath, chest x-ray and CTA thorax were performed. These did not show any acute findings. The patient was found to be feeling very much better after the IV fluids and I felt she was stable for discharge home. We've discussed home management of the symptoms, as well as the usual indications for return. Orders Ordered: Discontinued Medications Diphenhydramine HCl (Benadryl) 25 mg IV NOW ONE Stop: 11/06/19 17:50 Last Admin: 11/06/19 18:11 Dose: 25 mg Documented by: JANIA Sodium Chloride (Normal Saline 0.9%) 1,000 mls @ 1,000 mls/hr IV BOLUS ONE Stop: 11/06/19 18:02 Last Infusion: 11/06/19 18:21 Dose: 0 mls/hr Documented by: Admin: 11/06/19 17:09 Dose: 1,000 mls/hr Documented by: MARIANELA Sodium Chloride (Normal Saline 0.9%) 1,000 mls @ 1,000 mls/hr IV BOLUS ONE Stop: 11/06/19 18:48 Last Infusion: 11/06/19 20:08 Dose: 0 mls/hr Documented by: Admin: 11/06/19 18:14 Dose: 1,000 mls/hr Documented by: JANIA Prochlorperazine (Compazine) 10 mg IV NOW ONE Stop: 11/06/19 17:50 Last Admin: 11/06/19 18:10 Dose: 10 mg Documented by: JANIA Vital Signs Vital signs: Vital Signs - 8 hr 11/06/19 16:06 11/06/19 16:14 11/06/19 17:00 Temperature 98.2 F 97.5 F L Pulse Rate 115 H 100 H 69 Respiratory Rate 22 22 16 Blood Pressure 117/87 Blood Pressure [Left Arm] 143/89 H 152/89 H Pulse Oximetry 98 100 100 11/06/19 18:10 11/06/19 19:00 Temperature Pulse Rate 80 76 Respiratory Rate 17 Blood Pressure 149/90 H Blood Pressure [Left Arm] Pulse Oximetry 100 MDM - SOB/Dyspnea Medical Records Attestation: I reviewed the patient's medical records. Lab Data Attestation: I reviewed the patient's lab results. Result diagrams: 11/06/19 16:25 11/06/19 16:25 Labs: Lab Results 11/06/19 11/06/19 Range/Units 16:25 16:25 WBC 7.0 (4.5-11.0) X10^3/uL RBC 4.05 (4.0-5.2) X10^6/uL Hgb 13.3 (12.0-16.0) g/dL Hct 38.7 (36-46) % MCV 95.7 (80-100) fL MCH 32.9 (26-34) PG MCHC 34.4 (30-36) % RDW 15.9 H (11.6-14.8) % Plt Count 368 (150-400) X10^3/uL Neut % (Auto) 57.7 (50-75) % Lymph % (Auto) 38.7 (25-40) % [place] % (Auto) 1.3 L (3-14) % Eos % (Auto) 1.4 L (2-4) % Baso % (Auto) 0.9 (0-2) % Neut # (Auto) 4100 (1775-8395) /uL Lymph # (Auto) 2700 (3488-4365) /uL [place] # (Auto) 100 (0-900) /uL Eos # (Auto) 100 (0-450) /uL Baso # (Auto) 100 (0-100) /uL Sodium 134 L (137-145) mmol/L Potassium 3.6 (3.4-5.1) mmol/L Chloride 100 (98-107) mmol/L Carbon Dioxide 17 L (22-32) mmol/L BUN 31 H (7-17) mg/dL Creatinine 0.80 (0.52-1.04) mg/dL Estimated GFR > 60.0 (>60) mL/min BUN/Creatinine Ratio 38.8 H (6-22) Glucose 117 H (80-110) mg/dL Calcium 10.9 H (8.4-10.2) mg/dL Total Bilirubin 0.8 (0.2-1.3) mg/dL AST 26 (14-36) IU/L ALT 17 (<35) IU/L Alkaline Phosphatase 102 (38-126) U/L Troponin I < 0.012 (0.01-0.034) ng/mL Total Protein 8.9 H (6.3-8.2) g/dL Albumin 4.8 (3.5-5.0) g/dL Globulin 4.1 (1.7-4.1) g/dL Albumin/Globulin Ratio 1.2 (1.0-2.8) Imaging Data CT scan - chest: Radiologist's Impression: PROCEDURE: CT ANGIO CHEST PE PROTOCOL INDICATIONS: acute SOB, cancer pt TECHNIQUE: After the administration of intravenous contrast, 2 mm thick sections acquired from the pulmonary apices to the posterior costophrenic angles. 3-dimensional maximum intensity projection (MIP) coronal and sagittal reformats were then acquired through the thorax. For radiation dose reduction, the following was used: automated exposure control, adjustment of mA and/or kV according to patient size. COMPARISON: None. FINDINGS: Image quality: Excellent. Pulmonary arteries: Pulmonary arteries are normal in size, and demonstrate no intraluminal filling defects to suggest central pulmonary embolism. Of note, there is heterogeneous enhancement of the pulmonary arteries suggesting admixture of opacified and unopacified blood. Lungs and pleura: Lungs are clear. No pleural effusions or pneumothorax. Central and peripheral airways are patent. Mediastinum: Heart size is normal, without pericardial effusion. No leftward bowing of the interventricular septum. Of note, the right ventricle appears hypodense suggesting fatty atrophy of the myocardium. No mediastinal or hilar adenopathy. Thoracic aorta is normal in caliber and enhancement. Scattered atheromatous calcifications are present within the aortic arch. Esophagus is normal in caliber, without hiatal hernia. Bones and chest wall: No suspicious bony lesions. Ribs and thoracic spine appear intact throughout. Thyroid gland is unremarkable. No axillary or supraclavicular adenopathy. Abdomen: Visualized upper abdominal solid organs appear normal in the early arterial phase of enhancement. IMPRESSION: 1. No acute pulmonary embolus. 2. Hypodense appearance of the right ventricular myocardium suggesting fatty atrophy of the muscle. 3. No acute pulmonary findings to explain shortness of breath. Dictated by: Jayda Patterson M.D. on 11/06/2019 at 18:43 Approved by: Jayda Patterson M.D. on 11/06/2019 at 18:50 Discharge Plan Departure Patient Disposition: Home Clinical Impression: Nausea, Acute dehydration Discharge Date/Time: 11/06/19 20:08 Instructions: DI for Dehydration -- Adult, DI for Nausea -- Adult Activity Restrictions/Additional Instructions: Your labs look good. Your CT scan does not show any blood clot or other emergent finding in your lungs. Most likely, your sense of exhaustion and shortness of breath is due to the effects of the chemotherapy. You've been given 2 L of IV fluid in the emergency department today. Please continue to drink plenty of fluids at home. You may take ondansetron and the metoclopramide/Reglan together, as they are unrelated, if your nausea is not well controlled by one or the other. Prescriptions: No Action prednisone 10 mg tablet 30 mg PO DAILY RF: 0 amitriptyline 75 mg tablet 75 mg PO BEDTIME RF: 0 zolpidem 5 mg Tablet 5 mg PO BEDTIME RF: 0 gabapentin 300 mg capsule 300 mg PO Q8H Qty: 20 RF: 0 lidocaine HCl 2 % jelly 1 applictn TOP TID PRN (Reason: pain) Qty: 50 RF: 0 lidocaine 5 % adhesive patch,medicated 3 patch TOP DAILY Qty: 30 RF: 0 Referrals: Kimi Arzate PA-C [Primary Care Provider] -
== END 2019-11-06 20:08 | disposition home or self-care (01) ==
PROVIDERS: Emergency Provider Emergency Medicine; PCP Physician Assistant
DX: E86.0 Dehydration (principal); R11.0 Nausea; Z79.899 Other long term (current) drug therapy
CPT/HCPCS: 36415; 71045; 71275; 80053; 84484; 85025; 93005; 96361; 96374; 96375; 99285; J0780; J1200; Q9967

== ENCOUNTER 2020-03-28 17:08 | Emergency (ER) | payer OTHER, MEDICAID, SELFPAY ==
[2020-03-28 17:10] VITALS: BP 167/77; PULSE 87; RESP 24; TEMP 36.2; O2SAT 100; BMI 27.4
--- NOTE | 2020-03-28 17:40 | DI.RAD.S_ITS ---
PROCEDURE: XR CHEST 1V INDICATIONS: shortness of breath TECHNIQUE: One view of the chest was acquired. COMPARISON: [facility], CR, XR CHEST 1V, 11/06/2019, 16:11. FINDINGS: Surgical changes and devices: Right chest wall Port-A-Cath is stable. Lungs and pleura: Lungs are clear. No pleural effusions or pneumothorax. Mediastinum: Mediastinal contours appear normal. Heart size is normal. Bones and chest wall: No suspicious bony lesions. Overlying soft tissues appear unremarkable. IMPRESSION: No acute cardiopulmonary disease process. Dictated by: Jimena Banks MD, PhD on 03/28/2020 at 18:38 Approved by: Jimena Banks MD, PhD on 03/28/2020 at 18:38
--- NOTE | 2020-03-28 17:41 | ED_ITS ---
HPI - SOB/Dyspnea <KINSEY Valdez - Last Filed: 03/28/20 21:01> General Chief Complaint: Shortness of Breath/Dyspnea Stated Complaint: needs scan to check for blood clots Time Seen by Provider: 03/28/20 17:17 Source: patient Mode of arrival: Ambulatory Limitations: no limitations History of Present Illness HPI Narrative: 64yo female with a history of ovarian cancer with mets to her c [place] presents emergency department today complaining of increasing shortness of breath over the past week. She states she see DR. Shanhti Valentino at [facility] as an oncologist. Patient had 3 rounds of chemotherapy, surgery, and other through rounds of chemotherapy. She was then put on Nuraparib about 3 weeks ago. Patient discontinue this medication last night per instruction as her platelets were too low (last measured on 03/26/2020). Patient states she has been feeling increasing shortness of breath when walking across the room, she states she has to stop to catch her breath for about 4-5 minutes which is unusual. She denies any other symptoms such as fever, chills, chest pain, abdominal pain, nausea, vomiting, diarrhea, dizziness, or any other concerns. Patient was sent here for concern of PE by oncologist. Related Data Home Medications Medication Instructions Recorded Confirmed amitriptyline 75 mg PO BEDTIME 07/05/18 07/05/18 prednisone 30 mg PO DAILY 07/05/18 07/05/18 zolpidem 5 mg PO BEDTIME 07/05/18 07/05/18 Previous Rx's Medication Instructions Recorded gabapentin 300 mg PO Q8H #20 cap 07/05/18 lidocaine 3 patch TOP DAILY #30 each 07/05/18 lidocaine HCl 1 applictn TOP TID PRN #50 ml 07/05/18 Allergies Allergy/AdvReac Type Severity Reaction Status Date / Time No Known Drug Allergies Allergy Verified 07/05/18 12:34 Review of Systems <KINSEY Valdez - Last Filed: 03/28/20 21:01> Review of Systems Narrative: REVIEW OF SYSTEMS: GENERAL: Denies fevers. HENT: No head trauma or hearing loss. EYES: No vision changes. CARDIOVASCULAR: No chest pain or syncope. RESPIRATORY: Reports shortness of breath, see HPI. GASTROINTESTINAL: No nausea, vomiting, diarrhea, or constipation. MUSCULOSKELETAL: No weakness or injury. INTEGUMENTARY: No rash, lesions, or pruritus. 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) Osteoarthritis of right thumb (Chronic 11/20/16) Surgical History History of hand surgery (Resolved) History of nasal surgery (Resolved) Family History Sister Age: 65 Type 2 diabetes mellitus with diabetic dermatitis, without long-term current use of insulin Social History Smoking Status: Former smoker Tobacco: How many years used: 12 alcohol intake: former substance use type: does not use Smoking Status: Former smoker Substance Use Type: does not use Exam <KINSEY Valdez - Last Filed: 03/28/20 21:01> Initial Vital Signs Initial Vital Signs: Vital Signs Temperature 97.1 F L 03/28/20 17:10 Pulse Rate 87 03/28/20 17:10 Respiratory Rate 24 03/28/20 17:10 Blood Pressure 167/77 H 03/28/20 17:10 Pulse Oximetry 100 03/28/20 17:10 PHYSICAL EXAMINATION: GENERAL: Well groomed, alert, and cooperative. Answers questions promptly and appropriately. Vital signs noted. HENT: Normocephalic, atraumatic. Ear canals patent. TMs intact without mucus or erythema. Oropharynx without erythema. Tonsils are not present. EYES: Conjunctiva pink, sclera white, no periorbital swelling. No discharge. CHEST: Normal to inspection and without deformities. CARDIOVASCULAR: S1 and S2 sounds normal. Regular rate and rhythm, no murmurs, clicks, or bruits. RESPIRATORY: Normal respiratory rate, trachea midline, airway patent. No stridor, nasal flaring or accessory muscle use. Able to speak in full sentences. Slight wheeze noted to left upper lobe, no other wheezes or rhonchi. MUSCULOSKELETAL: Normal gait and coordination. Equal tone and mass bilaterally. EXTREMITIES: Moves all extremities. SKIN: Warm, dry, soft, appropriate color for ethnicity. No lesions, rashes, or wounds to visualized areas. NEURO: Alert and Oriented X 3. Good coordination. No ataxia or cognitive issues. PSYCH: Appropriate affect and mood. <Berta Cuellar MD - Last Filed: 03/28/20 23:00> Initial Vital Signs Initial Vital Signs: Vital Signs Temperature 97.1 F L 03/28/20 17:10 Pulse Rate 87 03/28/20 17:10 Respiratory Rate 24 03/28/20 17:10 Blood Pressure 167/77 H 03/28/20 17:10 Pulse Oximetry 100 03/28/20 17:10 Course <KINSEY Valdez - Last Filed: 03/28/20 21:01> Course Course Narrative: Patient reports feeling slightly short of breath after admi nistration of albuterol inhaler. I spoke with Mandi Orders Ordered: ED Orders 03/28/20 17:39 EKG-12 Lead Stat 03/28/20 17:40 XR chest 1V Stat Complete Blood Count AUTO DIFF Stat Comprehensive Metabolic Panel Stat D Dimer Stat Lactate (Lactic Acid) Stat Procalcitonin Stat Troponin & CK Cardiac Panel Stat 03/28/20 18:04 Blood Culture Stat 03/28/20 18:28 CT angio chest PE protocol Stat Discontinued Medications Albuterol (Ventolin Hfa) 2 puff INH NOW ONE Stop: 03/28/20 19:22 Last Admin: 03/28/20 19:32 Dose: 2 puff Documented by: BRANDON Sodium Chloride (Normal Saline 0.9%) 500 mls @ 21 mls/hr IV CONT ADEOLA Last Infusion: 03/28/20 19:47 Dose: 0 mls/hr Documented by: Admin: 03/28/20 18:45 Dose: 21 mls/hr Documented by: RENETTA Vital Signs Vital signs: Vital Signs - 8 hr 03/28/20 17:10 03/28/20 18:49 03/28/20 19:09 Temperature 97.1 F L Pulse Rate 87 99 H 83 Respiratory Rate 24 21 23 Blood Pressure 167/77 H Blood Pressure [Left Arm] 153/106 H 169/89 H Pulse Oximetry 100 99 100 03/28/20 19:37 03/28/20 20:15 Temperature 98.4 F Pulse Rate 82 68 Respiratory Rate 20 16 Blood Pressure 164/78 H Blood Pressure [Left Arm] Pulse Oximetry 100 99 <Berta Cuellar MD - Last Filed: 03/28/20 23:00> Orders Ordered: ED Orders 03/28/20 17:39 EKG-12 Lead Stat 03/28/20 17:40 XR chest 1V Stat Complete Blood Count AUTO DIFF Stat Comprehensive Metabolic Panel Stat D Dimer Stat Lactate (Lactic Acid) Stat Procalcitonin Stat Troponin & CK Cardiac Panel Stat 03/28/20 18:04 Blood Culture Stat 03/28/20 18:28 CT angio chest PE protocol Stat Discontinued Medications Albuterol (Ventolin Hfa) 2 puff INH NOW ONE Stop: 03/28/20 19:22 Last Admin: 03/28/20 19:32 Dose: 2 puff Documented by: BRANDON Sodium Chloride (Normal Saline 0.9%) 500 mls @ 21 mls/hr IV CONT ADEOLA Last Infusion: 03/28/20 19:47 Dose: 0 mls/hr Documented by: Admin: 03/28/20 18:45 Dose: 21 mls/hr Documented by: RENETTA Vital Signs Vital signs: Vital Signs - 8 hr 03/28/20 17:10 03/28/20 18:49 03/28/20 19:09 Temperature 97.1 F L Pulse Rate 87 99 H 83 Respiratory Rate 24 21 23 Blood Pressure 167/77 H Blood Pressure [Left Arm] 153/106 H 169/89 H Pulse Oximetry 100 99 100 03/28/20 19:37 03/28/20 20:15 Temperature 98.4 F Pulse Rate 82 68 Respiratory Rate 20 16 Blood Pressure 164/78 H Blood Pressure [Left Arm] Pulse Oximetry 100 99 MDM - SOB/Dyspnea <KINSEY Valdez - Last Filed: 03/28/20 21:01> Medical Records Attestation: I reviewed the patient's medical records. Lab Data Attestation: I reviewed the patient's lab results. Result diagrams: 03/28/20 17:40 03/28/20 17:40 Labs: Lab Results 03/28/20 03/28/20 03/28/20 Range/Units 17:40 17:40 17:40 WBC 5.0 (4.5-11.0) X10^3/uL RBC 3.30 L (4.0-5.2) X10^6/uL Hgb 11.1 L (12.0-16.0) g/dL Hct 32.5 L (36-46) % MCV 98.5 (80-100) fL MCH 33.7 (26-34) PG MCHC 34.2 (30-36) % RDW 14.3 (11.6-14.8) % Plt Count 31 L* (150-400) X10^3/uL Neut % (Auto) 36.9 L (50-75) % Lymph % (Auto) 52.4 H (25-40) % [place] % (Auto) 7.3 (3-14) % Eos % (Auto) 2.5 (2-4) % Baso % (Auto) 0.9 (0-2) % Neut # (Auto) 1900 (9864-6137) /uL Lymph # (Auto) 2600 (6867-2130) /uL [place] # (Auto) 400 (0-900) /uL Eos # (Auto) 100 (0-450) /uL Baso # (Auto) 0 (0-100) /uL Platelet Estimate Decreased on smear RBC Morphology Normal morphology D-Dimer 822 H (<230) ng/mL Sodium (137-145) mmol/L Potassium (3.4-5.1) mmol/L Chloride (98-107) mmol/L Carbon Dioxide (22-32) mmol/L BUN (7-17) mg/dL Creatinine (0.52-1.04) mg/dL Estimated GFR (>60) mL/min BUN/Creatinine Ratio (6-22) Glucose (80-110) mg/dL Lactate (0.7-2.1) mmol/L Calcium (8.4-10.2) mg/dL Total Bilirubin (0.2-1.3) mg/dL AST (14-36) IU/L ALT (<35) IU/L Alkaline Phosphatase (38-126) U/L Total Creatine Kinase 96 (30-135) U/L CK-MB (CK-2) TNP CK-MB (CK-2) Rel Index TNP Troponin I < 0.012 (0.01-0.034) ng/mL NT-Pro-B Natriuret Pep (<125) pg/mL Total Protein (6.3-8.2) g/dL Albumin (3.5-5.0) g/dL Globulin (1.7-4.1) g/dL Albumin/Globulin Ratio (1.0-2.8) Procalcitonin (<0.5) ng/mL 03/28/20 03/28/20 03/28/20 Range/Units 17:40 17:40 17:40 WBC (4.5-11.0) X10^3/uL RBC (4.0-5.2) X10^6/uL Hgb (12.0-16.0) g/dL Hct (36-46) % MCV (80-100) fL MCH (26-34) PG MCHC (30-36) % RDW (11.6-14.8) % Plt Count (150-400) X10^3/uL Neut % (Auto) (50-75) % Lymph % (Auto) (25-40) % [place] % (Auto) (3-14) % Eos % (Auto) (2-4) % Baso % (Auto) (0-2) % Neut # (Auto) (3197-6047) /uL Lymph # (Auto) (7648-2868) /uL [place] # (Auto) (0-900) /uL Eos # (Auto) (0-450) /uL Baso # (Auto) (0-100) /uL Platelet Estimate RBC Morphology D-Dimer (<230) ng/mL Sodium 135 L (137-145) mmol/L Potassium 3.7 (3.4-5.1) mmol/L Chloride 103 (98-107) mmol/L Carbon Dioxide 22 (22-32) mmol/L BUN 19 H (7-17) mg/dL Creatinine 1.03 (0.52-1.04) mg/dL Estimated GFR 54.1 L (>60) mL/min BUN/Creatinine Ratio 18.4 (6-22) Glucose 91 (80-110) mg/dL Lactate 1.3 (0.7-2.1) mmol/L Calcium 9.7 (8.4-10.2) mg/dL Total Bilirubin 0.4 (0.2-1.3) mg/dL AST 43 H (14-36) IU/L ALT 30 (<35) IU/L Alkaline Phosphatase 134 H (38-126) U/L Total Creatine Kinase (30-135) U/L CK-MB (CK-2) CK-MB (CK-2) Rel Index Troponin I (0.01-0.034) ng/mL NT-Pro-B Natriuret Pep (<125) pg/mL Total Protein 7.9 (6.3-8.2) g/dL Albumin 4.4 (3.5-5.0) g/dL Globulin 3.5 (1.7-4.1) g/dL Albumin/Globulin Ratio 1.3 (1.0-2.8) Procalcitonin < 0.05 (<0.5) ng/mL 03/28/20 Range/Units Unknown WBC (4.5-11.0) X10^3/uL RBC (4.0-5.2) X10^6/uL Hgb (12.0-16.0) g/dL Hct (36-46) % MCV (80-100) fL MCH (26-34) PG MCHC (30-36) % RDW (11.6-14.8) % Plt Count (150-400) X10^3/uL Neut % (Auto) (50-75) % Lymph % (Auto) (25-40) % [place] % (Auto) (3-14) % Eos % (Auto) (2-4) % Baso % (Auto) (0-2) % Neut # (Auto) (8858-8556) /uL Lymph # (Auto) (2525-1672) /uL [place] # (Auto) (0-900) /uL Eos # (Auto) (0-450) /uL Baso # (Auto) (0-100) /uL Platelet Estimate RBC Morphology D-Dimer (<230) ng/mL Sodium (137-145) mmol/L Potassium (3.4-5.1) mmol/L Chloride (98-107) mmol/L Carbon Dioxide (22-32) mmol/L BUN (7-17) mg/dL Creatinine (0.52-1.04) mg/dL Estimated GFR (>60) mL/min BUN/Creatinine Ratio (6-22) Glucose (80-110) mg/dL Lactate (0.7-2.1) mmol/L Calcium (8.4-10.2) mg/dL Total Bilirubin (0.2-1.3) mg/dL AST (14-36) IU/L ALT (<35) IU/L Alkaline Phosphatase (38-126) U/L Total Creatine Kinase (30-135) U/L CK-MB (CK-2) CK-MB (CK-2) Rel Index Troponin I (0.01-0.034) ng/mL NT-Pro-B Natriuret Pep 103 (<125) pg/mL Total Protein (6.3-8.2) g/dL Albumin (3.5-5.0) g/dL Globulin (1.7-4.1) g/dL Albumin/Globulin Ratio (1.0-2.8) Procalcitonin (<0.5) ng/mL Urine Dip Bedside Urine Glucose Negative Bedside Urine Bilirubin - Negative Bedside Urine Ketone - Negative Urine Specific [place] 1.010 Bedside Urine Occult Blood - Negative Bedside Urine pH 6.5 Bedside Urine Protein - Negative Bedside Urine Urobilinogen - Negative Bedside Urine Nitrite - Negative Bedside Urine Leukocytes + 70 Esterase Imaging Data CTA - brain/neck: Radiologist's Impression: [address] [address] [address] Scan Report Signed Patient: Minda Cohen [facility]#: [id number] : 6Acct:[id number] Age/Sex: 64 / FDate of Service: 03/28/20 Loc: ED Accession Number: [id number] Procedure: CT angio chest PE protocol Ordering Provider: Kristine Cheema PROCEDURE: CT ANGIO CHEST PE PROTOCOL INDICATIONS: R/O PE, SOB. +d-dimer, hx malignancy TECHNIQUE: After the administration of intravenous contrast, 2 mm thick sections acquired from the pulmonary apices to the posterior costophrenic angles. 3-dimensional maximum intensity projection (MIP) coronal and sagittal reformats were then acquired through the thorax. For radiation dose reduction, the following was used: automated exposure control, adjustment of mA and/or kV according to patient size. COMPARISON: [facility], CT, CT ANGIO CHEST PE PROTOCOL, 11/06/2019, 18:26. FINDINGS: Image quality: Excellent. Pulmonary arteries: Pulmonary arteries are normal in size, and demonstrate no intraluminal filling defects to suggest central pulmonary embolism. Lungs and pleura: Lungs are clear. No pleural effusions or pneumothorax. Central and peripheral airways are patent. Mediastinum: Heart size is normal, without pericardial effusion. Fatty atrophy of the right ventricular myocardium stable compared to prior exam. No mediastinal or hilar adenopathy. Thoracic aorta is normal in caliber and enhancement. Esophagus is normal in caliber, without hiatal hernia. Bones and chest wall: Right chest wall Port-A-Cath. No suspicious bony lesions. Ribs and thoracic spine appear intact throughout. Spine degenerative disc disease and facet arthropathy.Thyroid gland is within normal limits. No axillary or supraclavicular adenopathy. Abdomen: Visualized upper abdominal solid organs appear normal in the early arterial phase of enhancement. IMPRESSION: 1. No pulmonary embolus. 2. Fatty atrophy of the cardiac right ventricular myocardium redemonstrated. Dictated by: Jimena Banks MD, PhD on 03/28/2020 at 19:00 Approved by: Jimena Banks MD, PhD on 03/28/2020 at 19:06 ECG Data Interpretation: Normal sinus rhythm, rate 82, SC interval 164, QTC 462. No ST elevation or ST depression. No T-wave abnormality. No ectopy. EKG also viewed by Dr. Farmer per protocol. MDM Narrative Medical decision making narrative: 64-year-old female with a history of ovarian cancer and mets to colon, presents emergency department for increasing shortness of breath over the past week. Differential includes reactive airway disease, congestive heart failure, physiological shortness of breath from slight anemia, and medication reaction to chemotherapy. Patient did show some improvement with her feelings of dyspnea after albuterol administration. Less likely significant CHF due to lack of adventitious lung sounds or elevated BNP. 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 Less likely pneumonitis, pneumonia, PE, or COVID-19 due to lack of other symptoms such as fevers, chest pain, consolidation, or PE seen on CT. Less likely ACS due to lack of acute changes in EKG, negative troponin, lack of other symptoms such as chest pain. Patient is hemodynamically stable, not tachycardic and non hypoxic. She is able to ambulate over 30 years without severe shortness of breath. Increased work of breathing was noted after a walk but patient remained non hypoxic. Patient has supportive care in follow-up, she increased returns emergency department immediately for any new or worsening symptoms. No indication for admission at this time. <Berta Cuellar MD - Last Filed: 03/28/20 23:00> Lab Data Labs: Lab Results 03/28/20 03/28/20 03/28/20 Range/Units 17:40 17:40 17:40 WBC 5.0 (4.5-11.0) X10^3/uL RBC 3.30 L (4.0-5.2) X10^6/uL Hgb 11.1 L (12.0-16.0) g/dL Hct 32.5 L (36-46) % MCV 98.5 (80-100) fL MCH 33.7 (26-34) PG MCHC 34.2 (30-36) % RDW 14.3 (11.6-14.8) % Plt Count 31 L* (150-400) X10^3/uL Neut % (Auto) 36.9 L (50-75) % Lymph % (Auto) 52.4 H (25-40) % [place] % (Auto) 7.3 (3-14) % Eos % (Auto) 2.5 (2-4) % Baso % (Auto) 0.9 (0-2) % Neut # (Auto) 1900 (6467-0698) /uL Lymph # (Auto) 2600 (7965-2917) /uL [place] # (Auto) 400 (0-900) /uL Eos # (Auto) 100 (0-450) /uL Baso # (Auto) 0 (0-100) /uL Platelet Estimate Decreased on smear RBC Morphology Normal morphology D-Dimer 822 H (<230) ng/mL Sodium (137-145) mmol/L Potassium (3.4-5.1) mmol/L Chloride (98-107) mmol/L Carbon Dioxide (22-32) mmol/L BUN (7-17) mg/dL Creatinine (0.52-1.04) mg/dL Estimated GFR (>60) mL/min BUN/Creatinine Ratio (6-22) Glucose (80-110) mg/dL Lactate (0.7-2.1) mmol/L Calcium (8.4-10.2) mg/dL Total Bilirubin (0.2-1.3) mg/dL AST (14-36) IU/L ALT (<35) IU/L Alkaline Phosphatase (38-126) U/L Total Creatine Kinase 96 (30-135) U/L CK-MB (CK-2) TNP CK-MB (CK-2) Rel Index TNP Troponin I < 0.012 (0.01-0.034) ng/mL NT-Pro-B Natriuret Pep (<125) pg/mL Total Protein (6.3-8.2) g/dL Albumin (3.5-5.0) g/dL Globulin (1.7-4.1) g/dL Albumin/Globulin Ratio (1.0-2.8) Procalcitonin (<0.5) ng/mL 03/28/20 03/28/20 03/28/20 Range/Units 17:40 17:40 17:40 WBC (4.5-11.0) X10^3/uL RBC (4.0-5.2) X10^6/uL Hgb (12.0-16.0) g/dL Hct (36-46) % MCV (80-100) fL MCH (26-34) PG MCHC (30-36) % RDW (11.6-14.8) % Plt Count (150-400) X10^3/uL Neut % (Auto) (50-75) % Lymph % (Auto) (25-40) % [place] % (Auto) (3-14) % Eos % (Auto) (2-4) % Baso % (Auto) (0-2) % Neut # (Auto) (7870-5279) /uL Lymph # (Auto) (0942-3997) /uL [place] # (Auto) (0-900) /uL Eos # (Auto) (0-450) /uL Baso # (Auto) (0-100) /uL Platelet Estimate RBC Morphology D-Dimer (<230) ng/mL Sodium 135 L (137-145) mmol/L Potassium 3.7 (3.4-5.1) mmol/L Chloride 103 (98-107) mmol/L Carbon Dioxide 22 (22-32) mmol/L BUN 19 H (7-17) mg/dL Creatinine 1.03 (0.52-1.04) mg/dL Estimated GFR 54.1 L (>60) mL/min BUN/Creatinine Ratio 18.4 (6-22) Glucose 91 (80-110) mg/dL Lactate 1.3 (0.7-2.1) mmol/L Calcium 9.7 (8.4-10.2) mg/dL Total Bilirubin 0.4 (0.2-1.3) mg/dL AST 43 H (14-36) IU/L ALT 30 (<35) IU/L Alkaline Phosphatase 134 H (38-126) U/L Total Creatine Kinase (30-135) U/L CK-MB (CK-2) CK-MB (CK-2) Rel Index Troponin I (0.01-0.034) ng/mL NT-Pro-B Natriuret Pep (<125) pg/mL Total Protein 7.9 (6.3-8.2) g/dL Albumin 4.4 (3.5-5.0) g/dL Globulin 3.5 (1.7-4.1) g/dL Albumin/Globulin Ratio 1.3 (1.0-2.8) Procalcitonin < 0.05 (<0.5) ng/mL 03/28/20 Range/Units Unknown WBC (4.5-11.0) X10^3/uL RBC (4.0-5.2) X10^6/uL Hgb (12.0-16.0) g/dL Hct (36-46) % MCV (80-100) fL MCH (26-34) PG MCHC (30-36) % RDW (11.6-14.8) % Plt Count (150-400) X10^3/uL Neut % (Auto) (50-75) % Lymph % (Auto) (25-40) % [place] % (Auto) (3-14) % Eos % (Auto) (2-4) % Baso % (Auto) (0-2) % Neut # (Auto) (3416-9329) /uL Lymph # (Auto) (4013-0471) /uL [place] # (Auto) (0-900) /uL Eos # (Auto) (0-450) /uL Baso # (Auto) (0-100) /uL Platelet Estimate RBC Morphology D-Dimer (<230) ng/mL Sodium (137-145) mmol/L Potassium (3.4-5.1) mmol/L Chloride (98-107) mmol/L Carbon Dioxide (22-32) mmol/L BUN (7-17) mg/dL Creatinine (0.52-1.04) mg/dL Estimated GFR (>60) mL/min BUN/Creatinine Ratio (6-22) Glucose (80-110) mg/dL Lactate (0.7-2.1) mmol/L Calcium (8.4-10.2) mg/dL Total Bilirubin (0.2-1.3) mg/dL AST (14-36) IU/L ALT (<35) IU/L Alkaline Phosphatase (38-126) U/L Total Creatine Kinase (30-135) U/L CK-MB (CK-2) CK-MB (CK-2) Rel Index Troponin I (0.01-0.034) ng/mL NT-Pro-B Natriuret Pep 103 (<125) pg/mL Total Protein (6.3-8.2) g/dL Albumin (3.5-5.0) g/dL Globulin (1.7-4.1) g/dL Albumin/Globulin Ratio (1.0-2.8) Procalcitonin (<0.5) ng/mL Urine Dip Bedside Urine Glucose Negative Bedside Urine Bilirubin - Negative Bedside Urine Ketone - Negative Urine Specific [place] 1.010 Bedside Urine Occult Blood - Negative Bedside Urine pH 6.5 Bedside Urine Protein - Negative Bedside Urine Urobilinogen - Negative Bedside Urine Nitrite - Negative Bedside Urine Leukocytes + 70 Esterase Discharge Plan Departure Patient Disposition: Home Clinical Impression: Acute dyspnea Discharge Date/Time: 03/28/20 20:15 Instructions: DI for Asthma -- Adult, DI for Shortness of Breath Activity Restrictions/Additional Instructions: Thank you for entrusting me with your care today. As discussed, your chest CT was negative for any blood clots. Your platelets, were lower today at 31. I spoke with your Palliative Care Nurse Pracitioner about your test results today. I recommend following up with your provider to discuss a cardiac ECHO for further evaluation and testing. I have given you a albuterol inhaler. You can you this every 4-6 hours as needed for SOB, cough, or wheezing. Please return emergency department for any new or worsening symptoms such as chest pain, severe shortness of breath, abdominal pain, vomiting, high fevers, or any other concerns. Prescriptions: No Action prednisone 10 mg tablet 30 mg PO DAILY RF: 0 amitriptyline 75 mg tablet 75 mg PO BEDTIME RF: 0 zolpidem 5 mg Tablet 5 mg PO BEDTIME RF: 0 gabapentin 300 mg capsule 300 mg PO Q8H Qty: 20 RF: 0 lidocaine HCl 2 % jelly 1 applictn TOP TID PRN (Reason: pain) Qty: 50 RF: 0 lidocaine 5 % adhesive patch,medicated 3 patch TOP DAILY Qty: 30 RF: 0 Referrals: Kimi Arzate PA-C [Primary Care Provider] - <Berta Cuellar MD - Last Filed: 03/28/20 23:00> [facility]ign [facility] [email or web address] Attestation: I was immediately available in the department for consultation throughout this patient's visit. I agree with documentation as above. Berta Cuellar MD
[2020-03-28 17:56] LABS: Add Manual Diff / Slide Review NO; Basophils Absolute Auto 0 /uL (0-100); Basophils Percent Auto 0.9 % (0-2); Eosinophils Absolute Auto 100 /uL (0-450); Eosinophils Percent Auto 2.5 % (2-4); Hematocrit 32.5 % (36-46); Hemoglobin 11.1 g/dL (12.0-16.0); Lymphocytes Absolute Auto 2600 /uL (1100-4500); Lymphocytes Percent Auto 52.4 % (25-40); Mean Corpuscular HGB Conc 34.2 % (30-36); Mean Corpuscular Hemoglobin 33.7 PG (26-34); Mean Corpuscular Volume 98.5 fL (80-100); Monocytes Absolute Auto 400 /uL (0-900); Monocytes Percent Auto 7.3 % (3-14); Neutrophils Absolute Auto 1900 /uL (1500-7000); Neutrophils Percent Auto 36.9 % (50-75); Red Cell Distribution Width 14.3 % (11.6-14.8)
[2020-03-28 18:02] LABS: Platelet Count 31 X10^3/uL (150-400)
[2020-03-28 18:08] LABS: Creatine Kinase 96 U/L (30-135)
[2020-03-28 18:10] LABS: Alanine Aminotransferase 30 IU/L (<35); Albumin 4.4 g/dL (3.5-5.0); Albumin Globulin Ratio 1.3 (1.0-2.8); Alkaline Phosphatase 134 U/L (38-126); Aspartate Aminotransferase 43 IU/L (14-36); BUN Creatinine Ratio 18.4 (6-22); Bilirubin Total 0.4 mg/dL (0.2-1.3); Blood Urea Nitrogen 19 mg/dL (7-17); Calcium 9.7 mg/dL (8.4-10.2); Carbon Dioxide 22 mmol/L (22-32); Chloride 103 mmol/L (98-107); Estimated Glomerular Filt Rate 54.1 mL/min (>60); Globulin 3.5 g/dL (1.7-4.1); Glucose 91 mg/dL (80-110); HEMOLYSIS 18 (0-50); Lactate (Lactic Acid) 1.3 mmol/L (0.7-2.1); Potassium 3.7 mmol/L (3.4-5.1); Sodium 135 mmol/L (137-145); Total Protein 7.9 g/dL (6.3-8.2)
[2020-03-28 18:17] LABS: D Dimer 822 ng/mL (<230)
[2020-03-28 18:21] LABS: Troponin I < 0.012 ng/mL (0.01-0.034)
--- NOTE | 2020-03-28 18:28 | DI.CT.S_ITS ---
PROCEDURE: CT ANGIO CHEST PE PROTOCOL INDICATIONS: R/O PE, SOB. +d-dimer, hx malignancy TECHNIQUE: After the administration of intravenous contrast, 2 mm thick sections acquired from the pulmonary apices to the posterior costophrenic angles. 3-dimensional maximum intensity projection (MIP) coronal and sagittal reformats were then acquired through the thorax. For radiation dose reduction, the following was used: automated exposure control, adjustment of mA and/or kV according to patient size. COMPARISON: [facility], CT, CT ANGIO CHEST PE PROTOCOL, 11/06/2019, 18:26. FINDINGS: Image quality: Excellent. Pulmonary arteries: Pulmonary arteries are normal in size, and demonstrate no intraluminal filling defects to suggest central pulmonary embolism. Lungs and pleura: Lungs are clear. No pleural effusions or pneumothorax. Central and peripheral airways are patent. Mediastinum: Heart size is normal, without pericardial effusion. Fatty atrophy of the right ventricular myocardium stable compared to prior exam. No mediastinal or hilar adenopathy. Thoracic aorta is normal in caliber and enhancement. Esophagus is normal in caliber, without hiatal hernia. Bones and chest wall: Right chest wall Port-A-Cath. No suspicious bony lesions. Ribs and thoracic spine appear intact throughout. Spine degenerative disc disease and facet arthropathy.Thyroid gland is within normal limits. No axillary or supraclavicular adenopathy. Abdomen: Visualized upper abdominal solid organs appear normal in the early arterial phase of enhancement. IMPRESSION: 1. No pulmonary embolus. 2. Fatty atrophy of the cardiac right ventricular myocardium redemonstrated. Dictated by: Jimena Banks MD, PhD on 03/28/2020 at 19:00 Approved by: Jimena Banks MD, PhD on 03/28/2020 at 19:06
[2020-03-28 18:40] LABS: Procalcitonin < 0.05 ng/mL (<0.5)
[2020-03-28] MEDS: SODIUM CHLORIDE 0.9% 500 ML 21 ML IV (18:45)
[2020-03-28 18:47] LABS: NT-proBNP (BNP-Adult 18+) 103 pg/mL (<125)
[2020-03-28 18:49] VITALS: BP 153/106; PULSE 99; RESP 21; O2SAT 99
[2020-03-28 19:09] VITALS: BP 169/89; PULSE 83; RESP 23; O2SAT 100
[2020-03-28 19:18] LABS: Platelet Estimate Decreased on smear; RBC Morphology Normal Morphology
[2020-03-28] MEDS: ALBUTEROL HFA 60 PUFF/8 GM INH INH (19:32)
[2020-03-28 19:37] VITALS: PULSE 82; RESP 20; O2SAT 100
[2020-03-28 20:15] VITALS: BP 164/78; PULSE 68; RESP 16; TEMP 36.9; O2SAT 99
== END 2020-03-28 20:15 | disposition home or self-care (01) ==
PROVIDERS: Emergency Provider Nurse Practitioner; PCP Physician Assistant
DX: R06.00 Dyspnea, unspecified (principal); R79.89 Other specified abnormal findings of blood chemistry
CPT/HCPCS: 36415; 71045; 71275; 80053; 81003; 82550; 83605; 83880; 84145; 84484; 85025; 85379; 87040; 93005; 93010; 94640; 96360; 99284; J1642; Q9967

== ENCOUNTER → 2020-04-13 10:26 | Outpatient (CLI) | payer OTHER, MEDICAID, SELFPAY ==
--- NOTE | 2020-04-13 | DI.US.S_ITS ---
PROCEDURE: US PERIPH VENOUS LOW EXTREM BI INDICATIONS: EDEMA TECHNIQUE: Real-time imaging, as well as color and pulse Doppler interrogation, were performed of the deep veins of both legs from the inguinal ligament to the popliteal fossa. COMPARISON: None. FINDINGS: Right: The common femoral, femoral and popliteal veins are normally compressible, and free of intraluminal thrombus. Color and pulse Doppler demonstrate normal phasic intravascular flow. There is normal augmentation response to distal compression maneuver. Left: The common femoral, femoral and popliteal veins are normally compressible, and free of intraluminal thrombus. Color and pulse Doppler demonstrate normal phasic intravascular flow. There is normal augmentation response to distal compression maneuver. IMPRESSION: No evidence of deep vein thrombosis involving either the right or left lower extremities. Dictated by: Jimena Banks MD, PhD on 04/13/2020 at 11:29 Approved by: Jimena Banks MD, PhD on 04/13/2020 at 11:30
== END ==
PROVIDERS: PCP Physician Assistant; Referring Provider Physician Assistant; Visit Provider Physician Assistant
DX: R60.0 Localized edema (principal); D68.59 Other primary thrombophilia
CPT/HCPCS: 93970

== ENCOUNTER → 2020-04-16 06:49 | Outpatient (CLI) | payer OTHER, MEDICAID, SELFPAY ==
--- NOTE | 2020-04-16 | DI.ECHO.S_ITS ---
[facility] +---------+ : : [address] : [place] : : : : [id number] : : : : Phone: [phone]+ Echocardiogram Report + + :Name: SARITA HERNÁNDEZ Study Date: 04/16/2020 Height: 64 in : :[facility] Weight: 165 lb : : Gender: Female BSA: 1.8 m2 : :: 1955 Age: 64 yrs BP: 128/76 mmHg: :Reason For Study: DYSPNEA : : Performed By: Ayad Coombs : :Referring: MAXWELL DON : + + Interpretation Summary Normal both left and right ventricle size and function. The ejection fraction is 60-65%. No valvular abnormality. Mildly enlarged ascending aorta. Procedure: A two-dimensional transthoracic echocardiogram with color flow and Doppler was performed. The study quality was technically adequate. There is no prior echocardiogram noted for this patient. The patient was in normal sinus rhythm during the exam. Left Ventricle: The left ventricle is normal in size. There is normal left ventricular wall thickness. The ejection fraction is estimated to be 60-65%. There are no focal wall motion abnormalities. Diastolic parameters suggest probable normal left ventricular diastolic function and normal filling pressures. Right Ventricle: The right ventricle is normal in size and function. Atria: Both atria are normal in size. The interatrial septum is intact with no evidence for an atrial septal defect. Mitral Valve: The mitral valve is normal in structure and function. There is trace mitral regurgitation. Aortic Valve: The aortic valve is trileaflet. The aortic valve opens well. No aortic regurgitation is present. Tricuspid Valve: The tricuspid valve is normal in structure and function. There is trace tricuspid regurgitation. The right ventricular systolic pressure is estimated to be at least 20 mmHg based on an estimated right atrial pressure of 3 mm Hg. Pulmonic Valve: The pulmonic valve is normal in structure and function. There is trace pulmonic regurgitation. Great Vessels: The aortic root is normal size. The ascending aorta is mildly enlarged. The pulmonary artery is normal size. The IVC is of normal diameter and collapses greater than 50% with a sniff. This suggests a low right atrial pressure of 3 mm Hg. Pericardium/ Pleura There is no pericardial effusion. There is no pleural effusion. MMode/2D Measurements & Calculations LVIDd: 4.2 cm LVOT diam: 2.1 cm LVIDs: 2.6 cm Ao root diam: 3.1 cm FS: 38.8 % asc Aorta Diam: 3.6 cm EPSS: 0.42 cm Ao Arch Diam (Prox Trans): 2.3 cm IVSd: 0.92 cm LVPWd: 0.81 cm LV morales. diameter/BSA (cm/m^2): 2.3 LV sys. diameter/BSA (cm/m^2): 1.4 LA dimension: 3.1 cm RA long axis: 3.8 cm LA A2 area: 19.8 cm2 RA area: 9.9 cm2 LA A4 area: 14.0 cm2 RA vol: 21.9 ml LA length (vol): 4.5 cm RA : 12.1 ml/m2 LA vol: 52.1 ml IVC diam: 1.3 cm LA vol index: 28.9 ml/m2 TAPSE: 1.8 cm Doppler Measurements & Calculations Ao V2 max: 114.3 cm/sec LVOT Max Jadiel: 87.3 cm/sec Ao V2 mean: 89.5 cm/sec LV V1 max P.1 mmHg Ao max P.2 mmHg LV V1 VTI: 19.5 cm Ao mean P.4 mmHg DANNA(I,D): 2.8 cm2 Ao V2 VTI: 24.2 cm DANNA(V,D): 2.7 cm2 sev ratio: 0.81 DANNA indexed to BSA (cm^2/m^2): 1.6 MV E max jadiel: 78.0 cm/sec TR max jadiel: 208.6 cm/sec MV A max jadiel: 85.4 cm/sec TR max P.4 mmHg MV E/A: 0.91 PA V2 max: 62.7 cm/sec Med Peak E' Jadiel: 4.8 cm/sec PA V2 mean: 46.6 cm/sec E/E' med: 16.1 PA mean P.92 mmHg Lat Peak E' Jadiel: 6.1 cm/sec PA pr(Accel): 31.0 mmHg E/E' lat: 12.8 E/e' average: 14.4 MV dec time: 0.19 sec SV(LVOT): 67.9 ml Electronically signed by: Ronan Tang on Reading Physician:04/16/2020 02:27 PM
== END ==
PROVIDERS: PCP Physician Assistant; Referring Provider Physician Assistant; Visit Provider Physician Assistant
DX: R06.00 Dyspnea, unspecified (principal); D68.59 Other primary thrombophilia; I77.89 Other specified disorders of arteries and arterioles
CPT/HCPCS: 93306

== ENCOUNTER → 2020-07-30 10:46 | Outpatient (CLI) | payer OTHER, MEDICAID, SELFPAY ==
[2020-07-30 11:05] LABS: Add Manual Diff / Slide Review NO; Basophils Absolute Auto 100 /uL (0-100); Basophils Percent Auto 1.2 % (0-2); Eosinophils Absolute Auto 0 /uL (0-450); Eosinophils Percent Auto 0.6 % (2-4); Hematocrit 37.7 % (36-46); Hemoglobin 12.9 g/dL (12.0-16.0); Lymphocytes Absolute Auto 1100 /uL (1100-4500); Lymphocytes Percent Auto 19.4 % (25-40); Mean Corpuscular HGB Conc 34.3 % (30-36); Mean Corpuscular Hemoglobin 34.2 PG (26-34); Mean Corpuscular Volume 99.7 fL (80-100); Monocytes Absolute Auto 400 /uL (0-900); Monocytes Percent Auto 7.5 % (3-14); Neutrophils Absolute Auto 3800 /uL (1500-7000); Neutrophils Percent Auto 71.3 % (50-75); Platelet Count 425 X10^3/uL (150-400); Red Blood Cell Count 3.78 X10^6/uL (4.0-5.2); Red Cell Distribution Width 13.8 % (11.6-14.8); White Blood Cell Count 5.4 X10^3/uL (4.5-11.0)
[2020-07-30 11:07] LABS: Bacteria Urine None Seen; RBC Urine None Seen (0-5/HPF)
[2020-07-30 11:19] LABS: Alanine Aminotransferase 27 IU/L (<35); Albumin 4.4 g/dL (3.5-5.0); Albumin Globulin Ratio 1.2 (1.0-2.8); Alkaline Phosphatase 153 U/L (38-126); Aspartate Aminotransferase 47 IU/L (14-36); Bilirubin Total 0.5 mg/dL (0.2-1.3); Blood Urea Nitrogen 13 mg/dL (7-17); Calcium 9.7 mg/dL (8.4-10.2); Carbon Dioxide 25 mmol/L (22-32); Chloride 103 mmol/L (98-107); Estimated Glomerular Filt Rate 51.2 mL/min (>60); Globulin 3.7 g/dL (1.7-4.1); Glucose 147 mg/dL (80-110); HEMOLYSIS < 15 (0-50); Potassium 4.2 mmol/L (3.4-5.1); Sodium 140 mmol/L (137-145); Total Protein 8.1 g/dL (6.3-8.2)
[2020-07-30 11:47] LABS: Cancer Antigen 125 106 U/mL (0-35)
[2020-07-30 12:14] LABS: Appearance Urine UA CLEAR; Bilirubin Urine UA NEGATIVE (NEGATIVE); Color Urine UA YELLOW; Glucose Urine UA NEGATIVE (Negative); Ketones Urine UA TRACE (NEGATIVE); Leukocyte Esterase Urine UA 2+ (NEGATIVE); Nitrite Urine UA NEGATIVE (Negative); Occult Blood Urine UA NEGATIVE (Negative); Protein Urine UA NEGATIVE (Negative); Urobilinogen Urine UA 0.2 E.U./dL (0.2)
[2020-07-30 12:23] LABS: Culture Indicated Urine Cult Not Indicated; Renal Epithelial Cells Urine 1-5/HPF (0-1/HPF); Squamous Epithelial Cell Urine 5-10 /HPF (0-5/HPF); Transitional Epi Cells Urine 0-1/HPF (0-5/HPF); WBC Urine 5-10/HPF (0-5/HPF)
== END ==
PROVIDERS: Obstetrics & Gynecology Gynecologic Oncology; PCP Physician Assistant; Referring Provider Physician Assistant Medical; Visit Provider Physician Assistant Medical
DX: C56.9 Malignant neoplasm of unspecified ovary (principal)
CPT/HCPCS: 36415; 80053; 81001; 85025; 86304; 86305

== ENCOUNTER 2020-10-02 11:26 | Emergency (ER) | payer OTHER, MEDICAID, SELFPAY ==
[2020-10-02] VITALS (14 sets, daily range): BP systolic 129–172; BP diastolic 75–91; PULSE 73–99; RESP 11–40; TEMP 37; O2SAT 97–100; BMI 26.9
[2020-10-02 12:10] LABS: Add Manual Diff / Slide Review NO; Basophils Absolute Auto 0 /uL (0-100); Basophils Percent Auto 0.2 % (0-2); Eosinophils Absolute Auto 100 /uL (0-450); Hematocrit 41.5 % (36-46); Lymphocytes Absolute Auto 2900 /uL (1100-4500); Lymphocytes Percent Auto 25.6 % (25-40); Mean Corpuscular HGB Conc 33.6 % (30-36); Mean Corpuscular Hemoglobin 33.1 PG (26-34); Mean Corpuscular Volume 98.3 fL (80-100); Monocytes Absolute Auto 800 /uL (0-900); Monocytes Percent Auto 6.9 % (3-14); Neutrophils Absolute Auto 7600 /uL (1500-7000); Neutrophils Percent Auto 66.3 % (50-75); Platelet Count 370 X10^3/uL (150-400); Red Blood Cell Count 4.22 X10^6/uL (4.0-5.2); Red Cell Distribution Width 15.7 % (11.6-14.8); White Blood Cell Count 11.4 X10^3/uL (4.5-11.0)
--- NOTE | 2020-10-02 12:19 | ED_ITS ---
HPI - General Adult General Chief complaint: Abdominal Pain Stated complaint: chemo last thu/downhill since then/lethargic Time Seen by Provider: 10/02/20 11:31 Source: patient and family Mode of arrival: Wheelchair Limitations: no limitations History of Present Illness HPI narrative: 65-year-old female who is on palliative care chemotherapy secondary to metastatic ovarian cancer being seen by Oncology at the [facility] underwent a scheduled chemotherapy infusion last Thursday. One of the 2 drugs and she received is a new drug. She does not remember the exact name of this new drug here for evaluation of fatigue in weakness and lethargy. Denies any fevers. Decreased oral intake secondary to the fatigue and lack of an injury. She denies any new pain. Contacted her oncologist who told her to come the emergency department. Related Data Home Medications Medication Instructions Recorded Confirmed amitriptyline 75 mg PO BEDTIME 07/05/18 07/05/18 prednisone 30 mg PO DAILY 07/05/18 07/05/18 zolpidem 5 mg PO BEDTIME 07/05/18 07/05/18 Previous Rx's Medication Instructions Recorded gabapentin 300 mg PO Q8H #20 cap 07/05/18 lidocaine 3 patch TOP DAILY #30 each 07/05/18 lidocaine HCl 1 applictn TOP TID PRN #50 ml 07/05/18 Allergies Allergy/AdvReac Type Severity Reaction Status Date / Time No Known Drug Allergies Allergy Verified 07/05/18 12:34 Review of Systems Constitutional Constitutional: Reports fatigue, Denies fever(s), Denies headache(s), Reports lethargy and Reports malaise ENT Ears, Nose, Mouth, and Throat: Denies headache(s) Cardiovascular Cardiovascular: Denies chest pain and Denies dyspnea Respiratory Respiratory: Denies dyspnea Gastrointestinal Comments: Side pain Genitourinary Genitourinary: Denies dysuria Genitourinary: Denies dysuria Musculoskeletal Musculoskeletal: Denies arthralgias and Denies myalgias Integumentary/Breasts Skin/Breast: Denies rash Neurologic Neurologic: Denies headache(s) Endocrine Endocrine: Reports fatigue Hematologic/Lymphatic Hematologic/Lymphatic: Denies easy bleeding and Denies easy bruising Patient History Medical History (Updated 10/02/20 @ 15:26 by Hunter Farmer DO) Anal fissure and fistula Inflammatory bowel disease Nonspecific colitis (11/20/16) Osteoarthritis of right thumb (11/20/16) Surgical History History of hand surgery History of nasal surgery Family History Sister Age: 66 Type 2 diabetes mellitus with diabetic dermatitis, without long-term current use of insulin Social History Smoking Status: Former smoker Tobacco: How many years used: 12 alcohol intake: former substance use type: does not use Smoking Status: Former smoker alcohol intake frequency: 0-2 drinks per day Substance Use Type: does not use Exam Initial Vital Signs Initial Vital Signs: Vital Signs Pulse Rate 89 10/02/20 11:45 Respiratory Rate 18 10/02/20 11:45 Blood Pressure 138/81 10/02/20 11:45 Pulse Oximetry 100 10/02/20 11:45 Const General: cooperative and comfortable Limitations: mental status not altered HENMI Head: normal to inspection and normocephalic Resp Effort & Inspection: normal respiratory effort Auscultation: clear to auscultation bilaterally Cardio Rate: regular rate Rhythm: regular rhythm GI Inspection: non-distended Palpation: soft Skin Lesions: no lesions Rashes: no rashes Neuro General: patient alert and patient awake Cognition: normal cognition Speech: speech normal Extrem General: normal to inspection and capillary refill normal Psych Appearance: grossly normal and well kempt Course Orders Ordered: ED Orders 10/02/20 12:00 Blood Culture Stat Complete Blood Count AUTO DIFF Stat Comprehensive Metabolic Panel Stat Lactate (Lactic Acid) Stat Lipase Stat Procalcitonin Stat 10/02/20 14:28 Urine Microscopic Stat Discontinued Medications Sodium Chloride (Normal Saline 0.9%) 1,000 mls @ 1,000 mls/hr IV BOLUS ONE Stop: 10/02/20 13:18 Last Admin: 10/02/20 12:28 Dose: 1,000 mls/hr Documented by: JUAN Vital Signs Vital signs: Vital Signs - 8 hr 10/02/20 11:45 10/02/20 11:50 10/02/20 12:00 Temperature 98.6 F Pulse Rate 89 97 H 93 H Respiratory Rate 18 19 15 Blood Pressure 138/81 138/81 Pulse Oximetry 100 100 99 10/02/20 12:04 10/02/20 12:30 10/02/20 12:35 Temperature Pulse Rate 99 H 94 H 92 H Respiratory Rate 26 H 28 H 40 H Blood Pressure 133/91 H 136/87 Pulse Oximetry 98 97 98 10/02/20 13:00 10/02/20 13:30 10/02/20 14:00 Temperature Pulse Rate 83 84 85 Respiratory Rate 16 11 L Blood Pressure 145/86 H 129/75 Pulse Oximetry 99 97 99 10/02/20 14:28 10/02/20 14:30 10/02/20 14:31 Temperature Pulse Rate 77 73 73 Respiratory Rate 21 18 14 Blood Pressure 172/79 H 158/82 H Pulse Oximetry 100 100 100 10/02/20 15:00 Temperature Pulse Rate 81 Respiratory Rate 18 Blood Pressure 134/81 Pulse Oximetry 100 Medical Decision Making Lab Data Lab results reviewed: Yes I reviewed the patient's lab results. Result diagrams: 10/02/20 12:00 10/02/20 12:00 Labs: Lab Results 10/02/20 10/02/20 10/02/20 Range/Units 12:00 12:00 12:00 WBC 11.4 H (4.5-11.0) X10^3/uL RBC 4.22 (4.0-5.2) X10^6/uL Hgb 14.0 (12.0-16.0) g/dL Hct 41.5 (36-46) % MCV 98.3 (80-100) fL MCH 33.1 (26-34) PG MCHC 33.6 (30-36) % RDW 15.7 H (11.6-14.8) % Plt Count 370 (150-400) X10^3/uL Neut % (Auto) 66.3 (50-75) % Lymph % (Auto) 25.6 (25-40) % [place] % (Auto) 6.9 (3-14) % Eos % (Auto) 1.0 L (2-4) % Baso % (Auto) 0.2 (0-2) % Neut # (Auto) 7600 H (7588-2255) /uL Lymph # (Auto) 2900 (4104-0116) /uL [place] # (Auto) 800 (0-900) /uL Eos # (Auto) 100 (0-450) /uL Baso # (Auto) 0 (0-100) /uL Sodium 134 L (137-145) mmol/L Potassium 4.3 (3.4-5.1) mmol/L Chloride 104 (98-107) mmol/L Carbon Dioxide 23 (22-32) mmol/L BUN 21 H (7-17) mg/dL Creatinine 0.77 (0.52-1.04) mg/dL Estimated GFR > 60.0 (>60) mL/min BUN/Creatinine Ratio 27.3 H (6-22) Glucose 97 (80-110) mg/dL Lactate (0.7-2.1) mmol/L Calcium 9.4 (8.4-10.2) mg/dL Total Bilirubin 0.6 (0.2-1.3) mg/dL AST 37 H (14-36) IU/L ALT 32 (<35) IU/L Alkaline Phosphatase 134 H (38-126) U/L Total Protein 7.7 (6.3-8.2) g/dL Albumin 4.2 (3.5-5.0) g/dL Globulin 3.5 (1.7-4.1) g/dL Albumin/Globulin Ratio 1.2 (1.0-2.8) Lipase 30 (23-300) U/L Procalcitonin < 0.05 (<0.5) ng/mL Urine RBC (0-5/HPF) Urine WBC (0-5/HPF) Ur Renal Epithelial Cell (0-1/HPF) Urine Bacteria (None) Ur Culture Indicated? 10/02/20 10/02/20 Range/Units 12:00 14:28 WBC (4.5-11.0) X10^3/uL RBC (4.0-5.2) X10^6/uL Hgb (12.0-16.0) g/dL Hct (36-46) % MCV (80-100) fL MCH (26-34) PG MCHC (30-36) % RDW (11.6-14.8) % Plt Count (150-400) X10^3/uL Neut % (Auto) (50-75) % Lymph % (Auto) (25-40) % [place] % (Auto) (3-14) % Eos % (Auto) (2-4) % Baso % (Auto) (0-2) % Neut # (Auto) (2736-4466) /uL Lymph # (Auto) (3231-0539) /uL [place] # (Auto) (0-900) /uL Eos # (Auto) (0-450) /uL Baso # (Auto) (0-100) /uL Sodium (137-145) mmol/L Potassium (3.4-5.1) mmol/L Chloride (98-107) mmol/L Carbon Dioxide (22-32) mmol/L BUN (7-17) mg/dL Creatinine (0.52-1.04) mg/dL Estimated GFR (>60) mL/min BUN/Creatinine Ratio (6-22) Glucose (80-110) mg/dL Lactate 1.3 (0.7-2.1) mmol/L Calcium (8.4-10.2) mg/dL Total Bilirubin (0.2-1.3) mg/dL AST (14-36) IU/L ALT (<35) IU/L Alkaline Phosphatase (38-126) U/L Total Protein (6.3-8.2) g/dL Albumin (3.5-5.0) g/dL Globulin (1.7-4.1) g/dL Albumin/Globulin Ratio (1.0-2.8) Lipase (23-300) U/L Procalcitonin (<0.5) ng/mL Urine RBC None seen (0-5/HPF) Urine WBC None seen (0-5/HPF) Ur Renal Epithelial Cell 1-5/hpf H (0-1/HPF) Urine Bacteria None seen (None) Ur Culture Indicated? Cult not indicated Urine Dip Bedside Urine Glucose Negative Bedside Urine Bilirubin - Negative Bedside Urine Ketone - Negative Urine Specific [place] 1.025 Bedside Urine Occult Blood - Negative Bedside Urine pH 6.0 Bedside Urine Protein - Negative Bedside Urine Urobilinogen - Negative Bedside Urine Nitrite - Negative Bedside Urine Leukocytes + 70 Esterase Point of care testing: Urine Dip Bedside Urine Glucose Negative Bedside Urine Bilirubin - Negative Bedside Urine Ketone - Negative Urine Specific [place] 1.025 Bedside Urine Occult Blood - Negative Bedside Urine pH 6.0 Bedside Urine Protein - Negative Bedside Urine Urobilinogen - Negative Bedside Urine Nitrite - Negative Bedside Urine Leukocytes + 70 Esterase MDM Narrative Medical decision making narrative: Patient's labs look well, urine shows no signs of a infection. She is afebrile. I did discuss the case with Dr. Last who is her oncologist who recommended that if she had no signs of infection and electrolytes unremarkable patient being discharged home with follow-up. Patient states she feels better after fluids. Will discharge home. Will hold on antibiotics. She was given return precautions. She expressed understanding and agreement. Discharge Plan Departure Patient Disposition: Home Clinical Impression: Fatigue, Ovarian cancer Instructions: DI for Cancer Fatigue Activity Restrictions/Additional Instructions: Continue all of your medications as directed. Contact your oncologist for a follow-up. Recommend that you continue to eat and drink. Return to the emergency department for any new or worsening symptoms Prescriptions: No Action prednisone 10 mg tablet 30 mg PO DAILY RF: 0 amitriptyline 75 mg tablet 75 mg PO BEDTIME RF: 0 zolpidem 5 mg Tablet 5 mg PO BEDTIME RF: 0 gabapentin 300 mg capsule 300 mg PO Q8H Qty: 20 RF: 0 lidocaine HCl 2 % jelly 1 applictn TOP TID PRN (Reason: pain) Qty: 50 RF: 0 lidocaine 5 % adhesive patch,medicated 3 patch TOP DAILY Qty: 30 RF: 0 Referrals: Kimi Arzate PA-C [Primary Care Provider] -
[2020-10-02 12:22] LABS: Lactate (Lactic Acid) 1.3 mmol/L (0.7-2.1)
[2020-10-02 12:23] LABS: Alanine Aminotransferase 32 IU/L (<35); Albumin 4.2 g/dL (3.5-5.0); Albumin Globulin Ratio 1.2 (1.0-2.8); Alkaline Phosphatase 134 U/L (38-126); Aspartate Aminotransferase 37 IU/L (14-36); BUN Creatinine Ratio 27.3 (6-22); Bilirubin Total 0.6 mg/dL (0.2-1.3); Blood Urea Nitrogen 21 mg/dL (7-17); Calcium 9.4 mg/dL (8.4-10.2); Carbon Dioxide 23 mmol/L (22-32); Chloride 104 mmol/L (98-107); Estimated Glomerular Filt Rate > 60.0 mL/min (>60); Globulin 3.5 g/dL (1.7-4.1); Glucose 97 mg/dL (80-110); HEMOLYSIS < 15 (0-50); Lipase 30 U/L (23-300); Potassium 4.3 mmol/L (3.4-5.1); Sodium 134 mmol/L (137-145); Total Protein 7.7 g/dL (6.3-8.2)
[2020-10-02] MEDS: SODIUM CHLORIDE 0.9% 1,000 ML 1000 ML IV (12:28)
[2020-10-02 12:43] LABS: Procalcitonin < 0.05 ng/mL (<0.5)
[2020-10-02 15:05] LABS: Bacteria Urine None Seen; RBC Urine None Seen (0-5/HPF); WBC Urine None Seen (0-5/HPF)
[2020-10-02 15:13] LABS: Culture Indicated Urine Cult Not Indicated; Renal Epithelial Cells Urine 1-5/HPF (0-1/HPF)
== END 2020-10-02 15:57 | disposition home or self-care (01) ==
PROVIDERS: Emergency Provider Emergency Medicine; PCP Physician Assistant
DX: R53.83 Other fatigue (principal); C56.9 Malignant neoplasm of unspecified ovary
CPT/HCPCS: 36415; 80053; 81003; 81015; 83605; 83690; 84145; 85025; 87040; 96360; 99281; 99284

== ENCOUNTER → 2021-04-22 13:38 | Outpatient (CLI) | payer OTHER, MEDICAID, SELFPAY ==
[2021-04-22 14:41] LABS: Hemoglobin A1C% w Est Avg Glu 5.3 % (4.0-6.0)
[2021-04-22 14:59] LABS: BUN Creatinine Ratio 18.5 (6-22); Blood Urea Nitrogen 17 mg/dL (7-17); Calcium 9.8 mg/dL (8.4-10.2); Carbon Dioxide 23 mmol/L (22-32); Chloride 107 mmol/L (98-107); Cholesterol 262 mg/dL (140-199); Estimated Glomerular Filt Rate > 60.0 mL/min (>60); Glucose 91 mg/dL (80-110); HDL Cholesterol 52 mg/dL (40-60); HEMOLYSIS 23 (0-50); LDL Cholesterol Calculated 152 mg/dL (<100); Sodium 138 mmol/L (137-145); Triglycerides 288 mg/dL (35-150)
[2021-04-22 15:28] LABS: TSH w/ Reflex to FT4 1.68 uIU/mL (0.47-4.68)
== END ==
PROVIDERS: PCP Family Medicine; Referring Provider Family Medicine; Visit Provider Family Medicine
DX: C79.60 Secondary malignant neoplasm of unspecified ovary (principal); M06.9 Rheumatoid arthritis, unspecified
CPT/HCPCS: 36415; 80048; 80061; 83036; 84443